=== PATIENT | male | born 1940 | race Caucasian/White ===

== ENCOUNTER → 2016-12-02 | Outpatient (CLI) | payer MEDICARE ==
[~2016-12-02] MED LIST: ALBU6.7H INH; CARD240C6 PO; CARD4TAB2 PO; CLIN150 OR; COUM5TAB PO; COZA50TA PO; DIGO.125 PO; FLUTI220I INH; FLUTI44I INH; GLUC2.5T2 PO; LANTUSP SQ; LASI20TA PO; METATAB; MOME17I; MONT10TA2 PO; POTA-243 PO; PROP1TAB PO; ROBA750T3 PO; ROSU5 PO; TAB-TAB PO; VITA500T10 PO; WARF2.5 PO
[2016-12-02 10:25] LABS: AUTOMATED NEUTROPHIL # 3.4 TH/MM3 (1.8-7.7); BASOPHIL % 0.5 % (0.0-2.0); EOSINOPHIL # 0.2 TH/MM3 (0-0.4); EOSINOPHIL % 3.1 % (0.0-4.0); HEMATOCRIT 32.5 % (39.0-51.0); HEMO FLAGS DIFF FINAL; LYMPH % 41.6 % (9.0-44.0); MEAN CELL VOLUME 89.7 FL (80.0-100.0); MEAN CORPUSCULAR HEMOGLOBIN 30.3 PG (27.0-34.0); MEAN CORPUSCULAR HGB CONC 33.7 % (32.0-36.0); MONO % 8.2 % (0.0-8.0); NEUT % 46.6 % (16.0-70.0); PLATELET COUNT 180 TH/MM3 (150-450); RED BLOOD COUNT 3.62 MIL/MM3 (4.50-5.90); RED CELL DISTRIBUTION WIDTH 15.4 % (11.6-17.2); WHITE BLOOD COUNT 7.3 TH/MM3 (4.0-11.0)
[2016-12-02 10:39] LABS: ANION GAP 5 MEQ/L (5-15); AST (GOT) 10 U/L (15-37); BICARBONATE 27.4 MEQ/L (21.0-32.0); CHLORIDE 107 MEQ/L (98-107); GLUCOSE,FASTING 124 MG/DL (74-99); POTASSIUM 4.5 MEQ/L (3.5-5.1); SODIUM (NA) 139 MEQ/L (136-145)
[2016-12-02 11:12] LABS: ALKALINE PHOSPHATASE 52 U/L (45-117); ALT (GPT) 18 U/L (12-78); BLOOD UREA NITROGEN 25 MG/DL (7-18); GLOMERULAR FILTRATION RATE 47 ML/MIN (>89); HDL CHOLESTEROL 30.7 MG/DL (40.0-60.0); LDL CHOLESTEROL 101 MG/DL (0-99); TOTAL BILIRUBIN ADULT 0.4 MG/DL (0.2-1.0)
[2016-12-02 16:45] LABS: HEMOGLOBIN A1a 1.2 %; HEMOGLOBIN Ao 82.9 %; HEMOGLOBIN LA1C 2.1 %; HEMOGLOBIN P3 4.3 %
== END ==
LOC: CLAB 09:54
PROVIDERS: ATTEND Family Medicine
DX: I10 Essential (primary) hypertension (principal); J44.0 Chronic obstructive pulmonary disease with (acute) lower respiratory infection; I50.30 Unspecified diastolic (congestive) heart failure; E03.8 Other specified hypothyroidism; R53.83 Other fatigue; E55.9 Vitamin D deficiency, unspecified; E10.9 Type 1 diabetes mellitus without complications
CPT/HCPCS: 36415; 80053; 80061; 82607; 83036; 84439; 84443; 84481; 85025

== ENCOUNTER → 2018-01-21 | Outpatient (CLI) | payer MEDICARE ==
[2018-01-21 11:30] LABS: AUTOMATED NEUTROPHIL # 2.8 TH/MM3 (1.8-7.7); BASOPHIL % 0.5 % (0.0-2.0); EOSINOPHIL # 0.2 TH/MM3 (0-0.4); EOSINOPHIL % 3.3 % (0.0-4.0); HEMATOCRIT 32.7 % (39.0-51.0); HEMOGLOBIN 11.3 GM/DL (13.0-17.0); LYMPH % 41.2 % (9.0-44.0); LYMPHOCYTE # 2.6 TH/MM3 (1.0-4.8); MEAN CELL VOLUME 89.3 FL (80.0-100.0); MEAN CORPUSCULAR HEMOGLOBIN 30.8 PG (27.0-34.0); MEAN CORPUSCULAR HGB CONC 34.4 % (32.0-36.0); MEAN PLATELET VOLUME 7.6 FL (7.0-11.0); MONO % 10.6 % (0.0-8.0); MONOCYTE # 0.7 TH/MM3 (0-0.9); NEUT % 44.4 % (16.0-70.0); PLATELET COUNT 203 TH/MM3 (150-450); RED BLOOD COUNT 3.66 MIL/MM3 (4.50-5.90); RED CELL DISTRIBUTION WIDTH 15.2 % (11.6-17.2); WHITE BLOOD COUNT 6.2 TH/MM3 (4.0-11.0)
[2018-01-21 11:49] LABS: ALBUMIN 3.2 GM/DL (3.4-5.0); ALT (GPT) 18 U/L (12-78); AST (GOT) 18 U/L (15-37); BICARBONATE 30.3 MEQ/L (21.0-32.0); BLOOD UREA NITROGEN 15 MG/DL (7-18); CALCIUM 8.8 MG/DL (8.5-10.1); CHLORIDE 106 MEQ/L (98-107); CHOLESTEROL 100 MG/DL (120-200); CREATININE 1.22 MG/DL (0.60-1.30); GLOMERULAR FILTRATION RATE 58 ML/MIN (>89); GLUCOSE,FASTING 118 MG/DL (74-99); SODIUM (NA) 141 MEQ/L (136-145); TRIGLYCERIDES 99 MG/DL (42-150)
[2018-01-21 11:51] LABS: ALKALINE PHOSPHATASE 57 U/L (45-117); CHOLESTEROL/ HDL RATIO 3.16 RATIO; HDL CHOLESTEROL 31.6 MG/DL (40.0-60.0); LDL CHOLESTEROL 49 MG/DL (0-99); TOTAL BILIRUBIN ADULT 0.4 MG/DL (0.2-1.0); TOTAL PROTEIN 7.7 GM/DL (6.4-8.2)
[2018-01-21 15:44] LABS: HEMOGLOBIN A1C 6.7 % (4.3-6.0)
== END ==
LOC: CLAB 10:52
DX: E11.65 Type 2 diabetes mellitus with hyperglycemia (principal)
CPT/HCPCS: 36415; 80053; 80061; 82043; 83036; 85025

== ENCOUNTER → 2018-02-27 | Outpatient (CLI) | payer MEDICARE ==
[~2018-02-27] MED LIST changes: +ACET-822 PO; +ATOR40TA16 PO; +CHLO1TAB34 PO; +DONE10TA7 PO; +DOXA1TAB34 PO; +FINA5TAB2 PO; +FURO20TA PO; +GABA300C5 PO; +INSU0.2I SQ; +JANT2.5T PO; +JANT5TAB PO; +LISI2.5T3 PO; +METF500T PO; +MOME17I EACH NARE; +MONT10TA4 PO; +MULT-65 PO; +PANT40TA3 PO; +POTA10TA2 PO; +SYMB160A INH; +VITA100018 PO
[2018-02-27 09:13] LABS: HEMATOCRIT 33.2 % (39.0-51.0); MEAN CELL VOLUME 90.7 FL (80.0-100.0); MEAN CORPUSCULAR HEMOGLOBIN 30.2 PG (27.0-34.0); MEAN CORPUSCULAR HGB CONC 33.3 % (32.0-36.0); PLATELET COUNT 233 TH/MM3 (150-450); RED BLOOD COUNT 3.66 MIL/MM3 (4.50-5.90); RED CELL DISTRIBUTION WIDTH 15.1 % (11.6-17.2); WHITE BLOOD COUNT 7.2 TH/MM3 (4.0-11.0)
[2018-02-27 09:13] LABS: BILIRUBIN, URINE NEG (NEG); BLOOD, URINE SMALL (NEG); GLUCOSE,URINE NEG (NEG); KETONE, URINE NEG (NEG); NITRITE,URINE NEG (NEG); URINE COLOR YELLOW (YELLW/STRAW); URINE LEUKOCYTE ESTERASE NEG (NEG)
[2018-02-27 09:16] LABS: INTERNATIONAL NORMALIZED RATIO 1.5 RATIO; PROTHROMBIN TIME - PATIENT 14.8 SEC (9.8-11.6)
[2018-02-27 09:33] LABS: BICARBONATE 26.8 MEQ/L (21.0-32.0); BLOOD UREA NITROGEN 28 MG/DL (7-18); CALCIUM 9.4 MG/DL (8.5-10.1); CHLORIDE 106 MEQ/L (98-107); CREATININE 1.52 MG/DL (0.60-1.30); GLOMERULAR FILTRATION RATE 45 ML/MIN (>89); GLUCOSE,FASTING 144 MG/DL (74-99); SODIUM (NA) 140 MEQ/L (136-145)
[2018-02-27 16:14] LABS: HEMOGLOBIN A1C 6.9 % (4.3-6.0)
== END ==
LOC: CPRE 07:57
PROVIDERS: ATTEND Orthopaedic Surgery
DX: Z01.812 Encounter for preprocedural laboratory examination (principal); M79.609 Pain in unspecified limb; M17.12 Unilateral primary osteoarthritis, left knee; M25.462 Effusion, left knee; M21.162 Varus deformity, not elsewhere classified, left knee; E11.9 Type 2 diabetes mellitus without complications
CPT/HCPCS: 36415; 80048; 81001; 83036; 85027; 85610; 85730

== ENCOUNTER 2018-03-10 07:22 | Inpatient (IN) | payer MEDICARE ==
[~2018-03-10] VITALS: Ht 167.6 cm; Wt 90.6 kg
[~2018-03-10 07:22] MED LIST changes: -ALBU6.7H INH; -CARD240C6 PO; -CARD4TAB2 PO; -CLIN150 OR; -COUM5TAB PO; -COZA50TA PO; -DIGO.125 PO; -FLUTI220I INH; -FLUTI44I INH; -GLUC2.5T2 PO; -LANTUSP SQ; -LASI20TA PO; -METATAB; -MOME17I; -MONT10TA2 PO; -POTA-243 PO; -PROP1TAB PO; -ROBA750T3 PO; -ROSU5 PO; -TAB-TAB PO; -VITA500T10 PO; -WARF2.5 PO
[2018-03-10] MEDS ORDERED: INSULIN HUMAN REGULAR 1,000 UNITS/10 ML VIAL SQ PRN (08:15)
[2018-03-10] MEDS ORDERED: POVIDONE IODINE 5% (ANTISEPSIS KIT) 4 APPLICATIONS EACH NARE PRN (08:15)
[2018-03-10] MEDS ORDERED: SODIUM CHLORID 0.9% 500 ML IV PRN (08:15)
[2018-03-10] MEDS ORDERED: METOPROLOL TARTRATE 25 MG TAB PO PRN (08:15)
[2018-03-10] MEDS ORDERED: LACTATED RINGER'S 1000 ML IV PRN (08:15)
[2018-03-10] MEDS ORDERED: TRANEXAMIC ACID INJ 906 MG in SODIUM CHLORIDE 0.9% INJ 100 ML IV SCH ×4 (08:15)
[2018-03-10] MEDS ORDERED: CHLORHEXIDINE GLUCONATE 4% SOLN 120 ML BTL TOPICAL SCH (08:15)
[2018-03-10] MEDS ORDERED: EXPAREL PERI-ARTICULAR INJECTION (TOTAL VOL. 100 ML) P-ARTICULR SCH ×2 (08:15)
[2018-03-10 08:22] VITALS: PULSE 60
[2018-03-10 08:38] LABS: INTERNATIONAL NORMALIZED RATIO 1.1 RATIO; PROTHROMBIN TIME - PATIENT 11.4 SEC (9.8-11.6)
[2018-03-10] MEDS ORDERED: CLINDAMYCIN PHOS 900 MG/6 ML VIAL ONE (09:12)
[2018-03-10] MEDS ORDERED: GENTAMICIN SULFATE 80 MG/2 ML VIAL ONE (09:12)
[2018-03-10] MEDS ORDERED: BUPIVACAINE LIPOSOME PF 1.3% 20 ML VIAL ONE ×2 (09:18→09:45)
[2018-03-10] MEDS ORDERED: MIDAZOLAM HCL 2 MG/2 ML VIAL ONE (09:18)
[2018-03-10] MEDS ORDERED: ceFAZolin INJ 1,000 MG VIAL ONE (09:30)
[2018-03-10] MEDS ORDERED: MIDAZOLAM HCL 2 MG/2 ML VIAL OTHER ONE (09:45)
[2018-03-10] MEDS ORDERED: ACETAMINOPHEN 1000 MG/100 ML 100 ML IV ONE (09:56)
[2018-03-10] MEDS ORDERED: FAMOTIDINE 20 MG/2 ML VIAL ONE (09:56)
[2018-03-10] MEDS ORDERED: ePHEDrine/NS 25 MG/5 ML SYRINGE IV ONE (12:00)
[2018-03-10] MEDS ORDERED: ROCURONIUM INJ 50 MG/5 ML SYRINGE IV PUSH ONE (12:00)
[2018-03-10] MEDS ORDERED: LACTATED RINGER'S 1000 ML INJ 1,000 ML IV ONE (12:00)
[2018-03-10] MEDS ORDERED: NEOSTIGMINE 5 MG/5 ML SYRINGE IV PUSH ONE (12:00)
[2018-03-10] MEDS ORDERED: PROPOFOL 200 MG/20 ML AMP IV ONE (12:00)
[2018-03-10] MEDS ORDERED: ESMOLOL HCL 100 MG/10 ML VIAL IV ONE (12:00)
[2018-03-10] MEDS ORDERED: LIDOCAINE HCL 1% PF 5 ML AMPULE OTHER ONE (12:00)
[2018-03-10] MEDS ORDERED: GLYCOPYRROLATE 1 MG/5 ML SYRINGE IV PUSH ONE (12:00)
[2018-03-10] MEDS ORDERED: ACETAMINOPHEN/HYDROcodone 325 MG/7.5 MG TAB PO PRN (13:00)
[2018-03-10] MEDS ORDERED: ONDANSETRON HCL 4 MG/2 ML VIAL IVP PRN (13:00)
[2018-03-10] MEDS ORDERED: CHLORPHENIRAMINE 4 MG PO PRN (13:00)
[2018-03-10] MEDS ORDERED: ZOLPIDEM TARTRATE 5 MG TAB PO PRN (13:00)
[2018-03-10] MEDS ORDERED: TRANEXAMIC ACID INJ 0 MG in SODIUM CHLORIDE 0.9% INJ 100 ML IV SCH (13:00)
[2018-03-10] MEDS ORDERED: MAGNESIUM HYDROXIDE SUSP 30 ML CUP PO PRN (13:00)
--- NOTE | 2018-03-10 13:06 | PD.OP ---
Operative Report Date of Surgery: Mar 10, 2018 Preoperative Diagnosis: (1) Primary osteoarthritis of left knee Postoperative Diagnosis: (1) Primary osteoarthritis of left knee Procedure: Left total knee arthroplasty using [place] Triathlon prosthesis (uncemented) Anesthesia: General endotracheal with supplemental adductor canal block regional and local with Exparel Surgeon: Delbert Darby MD Net Washer(s): Joe Dillon MD Operation and Findings: Indications and Findings: This 77-year-old man has had a 15 year history of progressively worsening left knee pain due to arthritis. He has loss of ambulation tolerance to 50 feet at this point. He has difficulty with stairs as well as standing from a seated position. He has had swelling in the knee and stiffness. He has not responded to conservative measures including analgesics, exercise, Orthovisc injections, ambulatory aids, bracing and weight loss attempts. He cannot take anti-inflammatory agents because of anticoagulants. Physical findings showed significant genu valgum with crepitation on motion, medial laxity, palpable osteophytes and tenderness on motion. X-ray showed severe osteoarthritis in the knee with loss of articular cartilage to bone on bone in the medial compartment, osteophytes and eburnation. Operative findings: The left knee had severe arthritis was tricompartmental in nature. The medial compartment was [id number] with erosion of the medial tibial plateau. There are large osteophytes apartments. There is degeneration in all compartments. The prosthesis used was a [place] Triathlon prosthesis. The femur was a size 5, cruciate retaining, uncemented. The tibial baseplate was a size 5 Tritanium with a 9 mm X3 polyethylene cruciate retaining spacer. The patella was a size 35 mm asymmetric Tritanium backed. The patient was brought to the clean-air operating suite. A general endotracheal anesthetic was administered as well as a regional anesthetic by adductor canal block. The position was supine with a small bolster under the hip on the operative side. A pneumatic tourniquet was applied to the upper thigh. The lower extremity was then prepped with alcohol, Hibiclens and ChloraPrep and draped in the usual manner with the knee draped free. An appropriate timeout procedure was carried out. An incision was made from about 3 fingerbreadths above the superior medial pole of patella down the tibial tubercle on the medial side. The incision was deepened through the subcutaneous tissue to the retinacular structures which were exposed medially and laterally. A medial retinacular incision was then made from the superior middle pole of patella down the tibial tubercle and up into the quadriceps tendon splitting it longitudinally and the medial one third. The patella was reflected. The infrapatellar fat pad was debulked. The anterior cruciate ligament was excised. Medial and lateral meniscectomies were initiated. Fenestrations were made in the distal femur and proximal tibia for intramedullary referencing guides. The distal femoral cutting guide and jig were then assembled for a 5, 8 mm cut. When this was fit position and placed cutting block was stabilized with pins. The jig was removed. The distal femoral cut was then completed with the oscillating saw. The sizing guide was then positioned in place along Whites[place] line and the epicondylar axis and stabilized with pins. The femoral size was then determined as noted above. The 4-in-1 cutting block was then positioned in place. Anterior and posterior cuts were made followed by posterior and anterior chamfer cuts taking care to prevent injury to ligamentous structures. Osteophytes were then trimmed from the distal femur. A bone plug was then placed into the fenestration of the distal femur. The proximal tibia was then exposed. The medial and lateral meniscectomies were completed. The proximal tibial cutting guide was then positioned in place and stabilized with a pin for rotation. The depth of cut was then verified with a stylus off the lateral side. The cutting block was stabilized with pins. The jig was removed. The depth of cut was then verified and adjusted appropriately with the use of the spacer block. The proximal tibial cut was then made with the oscillating saw taking care to prevent injury to neurovascular and ligamentous structures. Proximal tibial bone was removed. Local anesthetic was administered with Exparel in the posterior capsule. The tibial baseplate trial was then positioned in place. After verifying the appropriate size, the base plate trial was positioned in place along with its spacer. The femoral component was then impacted into place. The alignment was checked. The tibial baseplate was then pinned in place on the tibia. Attention was directed to the patella. The patella drill guide was positioned in place for the appropriate sized patella. Patellar drilling was then carried out. The trial patella was positioned in place. The knee was taken through a range of motion which was easily 0 extension to 150 by gravity. The patella trial was removed. The femoral drill holes were made. The femoral trials were removed. The tibial spacer was removed. A bone plug was placed into the proximal tibia. The tibial punch was impacted through the proximal tibial punch guide. This was all removed followed by placement of the tibial drill guide. The tibial drill holes were then made. The guide was removed. The cut ends of bone were then cleaned with pulse lavage. The tibial baseplate was then impacted into place and seated appropriately. The spacer was inserted. The the femoral component was then impacted into place and seated appropriately. The patella component was then seated with the patellar vice and tightened appropriately. The knee was taken through a range of motion which was comparable to the previous range of motion with excellent stability in flexion and extension and appropriate patellofemoral tracking. The remainder of the Exparel was then injected throughout the knee as a local anesthetic. Drains were brought out the superior lateral aspect of the suprapatellar pouch. Wound closure then commenced using 0 Vicryl interrupted [id number] sutures for the capsular and fascial structures, 2-0 Vicryl interrupted simple sutures with buried knots for the subcutaneous tissues and 4- 0 Monocryl, tenuous subcuticular closure for the skin. The wound was then dressed with Dermabond Prineo followed by Optifoam silver impregnated dressing. Sterile soft roll with a cooling pad and Shaun bandage from the base of the toes to mid thigh were then applied. Patient was then transferred from the operating room to the recovery room in satisfactory condition having tolerated procedure well. Counts are correct. Specimens: None. Estimated blood loss: 100 mL Forest Darby MD ([place]) Mar 10, 2018 13:06
--- NOTE | 2018-03-10 13:09 | HHI.FF ---
Face to Face Verification Diagnosis: (1) Status post total left knee replacement Physical Therapy Gait training Knee: Total knee, Protocol: Left, Gait training, Full weight bearing Left LE Weight Bearing: WB as tolerated Left LE Range of Motion: Active ROM (Active, active assisted, passive range of motion. Range of motion goal 0 extension to 140 of flexion. Range of motion achieved in the operating room was 0 extension to 150 of flexion.) Nursing Nursing: Dressing changes Dressing Changes: Daily dressing change, Coverderm/Primapore Additional Instructions Do not remove Dermabond Prineo I have seen patient Cheikh Wills on 03/10/18. My clinical findings support the need for the requested home health care services because: Ltd mobility - disease progression Limited ability to care for self High risk of falls I certify that my clinical findings support that this patient is homebound because: Post-op weakness Unsteady gait/balance Unsafe to leave home unassisted Forest Darby MD ([place]) Mar 10, 2018 13:09
[2018-03-10] MEDS ORDERED: Post-op Orders (for Pharmacy) XX ONE (13:25)
[2018-03-10] MEDS ORDERED: *HYDROmorphone PF 0.5 MG/0.5 ML PERIprocedure ONLY ONE (13:38)
[2018-03-10] MEDS: LACTATED RINGER'S 1000 ML INJ 1,000 ML IV SCH ×2 (14:10→18:20)
[2018-03-10] MEDS ORDERED: HYDROmorphone HCL PF 0.5 MG/0.5 ML SYRINGE IV PRN (14:15)
[2018-03-10] MEDS: KETOROLAC TROMETHAMINE 30 MG/ML (IVP) VIAL IVP SCH ×2 (14:37→21:03)
--- NOTE | 2018-03-10 15:39 | PD.CONS ---
[facility] By Dr. Darby Reason for Consult Medical management Primary Care Physician Jose Reynoso MD Diagnoses: (1) Atrial fibrillation (2) Diabetes (3) Hypertension (4) Primary osteoarthritis of left knee (5) Status post total left knee replacement History of Present Illness 77-year-old male with a medical history significant for osteoarthritis, diabetes , hypertension, CHF, A. fib, COPD, early dementia, who presented to the hospital for elective left knee arthroplasty. Patient reports he has been struggling with osteoarthritis involving his knee. He failed conservative management outpatient and was brought into the hospital for knee replacement. Medical history extensively reviewed. He is seen postoperatively. He reports that he is comfortable currently. Review of Systems Constitutional: DENIES: Weight gain, Weight loss Musculoskeletal: COMPLAINS OF: Joint pain Except as stated in HPI: all other systems reviewed are Neg Past Family Social History Allergies: Coded Allergies: adhesive tape (Verified Allergy, Severe, RASH, 03/02/18) amoxicillin (Unverified Allergy, Severe, RASH shortness of breath, 03/10/18 ) bacitracin (Verified Allergy, Severe, RASH, 03/02/18) chlorhexidine (Verified Allergy, Severe, rash, 03/10/18) morphine (Unverified Allergy, Severe, N/V, 07/01/17) neomycin (Verified Allergy, Severe, RASH, 03/02/18) polymyxin B (Verified Allergy, Severe, RASH, 03/02/18) Penicillins (Verified Allergy, Unknown, RASH shortness of breath, 03/10/18) Past Medical History osteoarthritis, diabetes, hypertension, CHF, A. fib, COPD, early dementia BPH Past Surgical History Hernia repair 2 Right knee replacement Pacemaker placement Reported Medications Reported Meds & Active Scripts Active Reported Nasonex Nasal [place] (Mometasone Furoate) 50 Mcg/Act Naspr 1 [place] EACH NARE DAILY Tylenol Extra Strength (Acetaminophen) 500 Mg Tablet 1 Tab PO DIRECTED Symbicort Inh (Budesonide/Formoterol Fumarate) 160-4.5 Mcg/Act Aero 2 Puff INH Q12HR Aller-Chlor (Chlorpheniramine Maleate) 4 Mg Tab 4 Mg PO HS PRN Multi-Vitamin Daily (Multiple Vitamin) 1 Tab Tab 1 Tab PO DAILY Vitamin D3 (Cholecalciferol) 1,000 Unit Tab 1,000 Units PO DAILY Atorvastatin (Atorvastatin Calcium) 40 Mg Tab 40 Mg PO DAILY Finasteride 5 Mg Tab 5 Mg PO HS Do not crush. Donepezil 10 Mg Tab 10 Mg PO HS Pantoprazole (Pantoprazole Sodium) 40 Mg Tab 40 Mg PO HS Jantoven (Warfarin) 2.5 Mg Tab 2.5 Mg PO WEIR,TU,WE,FR,SA Jantoven (Warfarin) 5 Mg Tab 5 Mg PO MO,TH Potassium Chloride ER (Potassium Chloride) 10 Meq Tab 10 Meq PO HS Doxazosin (Doxazosin Mesylate) 4 Mg Tab 4 Mg PO HS Furosemide 20 Mg Tab 20 Mg PO DAILY Metformin (Metformin HCl) 500 Mg Tab 500 Mg PO DAILYAC With a meal Gabapentin 300 Mg Cap 1,200 Mg PO HS Gabapentin 300 Mg Cap 900 Mg PO DAILY@0600 Montelukast (Montelukast Sodium) 10 Mg Tab 10 Mg PO DAILY Soliqua 100/33 100-33 Unt-Mcg/ml (Insulin Glargine-Lixisenatide) 100 Unit-33 Mcg /Ml (3 Ml) Inj 35 SQ DAILYAC Family History Reviewed and found to be noncontributory. Social History Does not use tobacco, alcohol or illicit drugs. Physical Exam Vital Signs Vital Signs Date Time Temp Pulse Resp B/P (MAP) Pulse Ox O2 Delivery O2 Flow Rate FiO2 03/10/18 15:00 84 12 141/92 (108) 98 03/10/18 14:45 82 12 143/67 (92) 95 03/10/18 14:30 100 12 177/76 (109) 95 03/10/18 14:15 103 12 169/79 (109) 99 03/10/18 14:00 112 8 144/77 (99) 100 03/10/18 13:45 114 20 132/78 (96) 99 03/10/18 13:30 98 21 138/81 (100) 98 03/10/18 13:27 97.6 123 16 146/73 (97) 96 Nasal Cannula 2 03/10/18 08:53 100 Nasal Cannula 2 03/10/18 08:23 97.9 63 18 121/80 (94) 99 03/10/18 08:22 60 Physical Exam GENERAL: This is a well-nourished, well-developed patient, in no apparent distress. SKIN: No rashes, ecchymoses or lesions. Cool and dry. HEAD: Atraumatic. Normocephalic. No temporal or scalp tenderness. EYES: Pupils equal round and reactive. Extraocular motions intact. No scleral icterus. No injection or drainage. ENT: Nose without bleeding, purulent drainage or septal hematoma. Throat without erythema, tonsillar hypertrophy or exudate. Uvula midline. Airway patent. NECK: Trachea midline. No JVD or lymphadenopathy. Supple, nontender, no meningeal signs. CARDIOVASCULAR: Regular rate and rhythm without murmurs, gallops, or rubs. RESPIRATORY: Clear to auscultation. Breath sounds equal bilaterally. No wheezes , rales, or rhonchi. GASTROINTESTINAL: Abdomen soft, non-tender, nondistended. No hepato-splenomegaly , or palpable masses. No guarding. MUSCULOSKELETAL: Left knee and postoperative splint. Neurovascularly intact distally at the toes. There is a drain in place. NEUROLOGICAL: Awake and alert. Cranial nerves II through XII intact. Motor and sensory grossly within normal limits. Five out of 5 muscle strength in all muscle groups. Normal speech. Laboratory Laboratory Tests Test 03/10/18 08:15 Prothrombin Time 11.4 Prothromb Time International Ratio 1.1 Assessment and Plan Problem List: (1) Primary osteoarthritis of left knee ICD Code: M17.12 - Unilateral primary osteoarthritis, left knee (2) Status post total left knee replacement ICD Code: Z96.652 - Presence of left artificial knee joint (3) Diabetes ICD Code: E11.9 - Type 2 diabetes mellitus without complications (4) Hypertension ICD Code: I10 - Essential (primary) hypertension (5) Atrial fibrillation ICD Code: I48.91 - Unspecified atrial fibrillation Assessment and Plan 77-year-old male admitted for left knee arthroplasty: Left knee arthroplasty: - Routine postoperative care per orthopedics - Pain control - Early PT Diabetes: Patient reports this has been fairly controlled. He is on Soliqua which is a combination of Insulin Glargine and Lixisenatide. Not on formulary at the hospital. - Will start Levemir 10 units nightly and sliding scale insulin with Accu-Cheks. - Monitor blood glucose and adjust as needed. He can be discharged on his home regimen when ready. Atrial fibrillation/history of pacemaker placement: -Coumadin to be restarted tomorrow per orthopedics. INR is 1.2. May need bridging with Lovenox. We will continue home medications for his chronic medical conditions. Odell Shell MD Mar 10, 2018 15:39
[2018-03-10] MEDS ORDERED: DEXTROSE 50% IN WATER 50 ML VIAL(D50) IV PUSH PRN (15:45)
[2018-03-10] MEDS ORDERED: GLUCAGON 1 MG/ML VIAL OTHER PRN (15:45)
--- NOTE | 2018-03-10 15:57 | RADRPT ---
EXAM DATE/TIME: 03/10/2018 13:49 [facility] COMPARISON: No previous studies available for comparison. INDICATIONS : Post op left knee surgery. MEDICAL HISTORY : Unobtainable. SURGICAL HISTORY : Unobtainable. ENCOUNTER: Initial ACUITY: 1 day PAIN SCORE: Non-responsive. LOCATION: Left knee. FINDINGS: Postsurgical features of left knee arthroplasty. Arthroplasty components are in anatomic alignment. N o significant acute bony fracture. Immediate postsurgical soft tissue features. CONCLUSION: 1. Status post left knee arthroplasty in anatomic alignment without significant acute bony fracture. Kobe Rios MD on March 10, 2018 at 15:54 Board Certified Radiologist. This report was verified electronically.
[2018-03-10 16:00] VITALS: BP 120/70; PULSE 94; RESP 18; TEMP 98.4; O2SAT 94
[2018-03-10] MEDS: INSULIN ASPART SUPPLEMENTAL SCALE SQ SCH ×2 (17:00→21:00)
[2018-03-10] MEDS: ACETAMINOPHEN/HYDROcodone 325 MG/7.5 MG TAB PO PRN (18:19)
[2018-03-10 19:54] VITALS: O2SAT 94
[2018-03-10 20:00] VITALS: BP 111/55; PULSE 64; RESP 20; TEMP 98.8; O2SAT 94
[2018-03-10] MEDS ORDERED: ASPIRIN EC 81 MG TABEC PO SCH (21:00)
[2018-03-10] MEDS ORDERED: INSULIN DETEMIR 100 UNITS/ML VIAL SQ SCH (21:00)
[2018-03-10] MEDS: GABAPENTIN 300 MG CAP PO SCH (21:02)
[2018-03-10] MEDS: PANTOPRAZOLE SOD 40 MG DELAYED RELEASE TAB PO SCH (21:02)
[2018-03-10] MEDS: DOXAZOSIN MESYLATE 4 MG TAB PO SCH (21:02)
[2018-03-10] MEDS: POTASSIUM CHLORIDE 10 MEQ CONTROLLED RELEASE TAB PO SCH (21:02)
[2018-03-10] MEDS: DONEPEZIL HCL 5 MG TAB PO SCH (21:02)
[2018-03-10] MEDS: FINASTERIDE 5 MG TAB PO SCH (21:02)
[2018-03-10] MEDS ORDERED: LORATADINE 10 MG TAB PO PRN (21:15)
[2018-03-10] MEDS: BUDESONIDE-FORMOTEROL 160/4.5 MCG INHALER INH SCH (22:38)
[2018-03-11] VITALS: BP 134/63; PULSE 59; RESP 20; TEMP 97.1; O2SAT 94
[2018-03-11] MEDS: KETOROLAC TROMETHAMINE 30 MG/ML (IVP) VIAL IVP SCH ×4 (03:04→21:10)
[2018-03-11 04:00] VITALS: BP 121/58; PULSE 63; RESP 20; TEMP 97.4; O2SAT 100
[2018-03-11] MEDS: GABAPENTIN 300 MG CAP PO SCH ×2 (05:28→21:16)
--- NOTE | 2018-03-11 07:03 | PD.ORT.PN ---
Subjective Post Op Day #: 1 Subjective Remarks He is doing well. He has minimal complaints related to his knee at this time. There is not a great deal of pain. He is tolerating the analgesic. Range of Motion -15 extension to 70 of flexion with PT in PACU Distance Walked 2 feet with PT in PACU. Objective Vitals Vital Signs Date Time Temp Pulse Resp B/P (MAP) Pulse Ox O2 Delivery O2 Flow Rate FiO2 03/11/18 04:00 97.4 63 20 121/58 (79) 100 03/11/18 00:00 97.1 59 20 134/63 (86) 94 03/10/18 20:00 98.8 64 20 111/55 (73) 94 03/10/18 19:54 94 21 03/10/18 16:00 98.4 94 18 120/70 (87) 94 03/10/18 16:00 97.6 71 16 112/57 (75) 97 Nasal Cannula 2 03/10/18 15:00 84 12 141/92 (108) 98 03/10/18 14:45 82 12 143/67 (92) 95 03/10/18 14:30 100 12 177/76 (109) 95 03/10/18 14:15 103 12 169/79 (109) 99 03/10/18 14:00 112 8 144/77 (99) 100 03/10/18 13:45 114 20 132/78 (96) 99 03/10/18 13:30 98 21 138/81 (100) 98 03/10/18 13:27 97.6 123 16 146/73 (97) 96 Nasal Cannula 2 03/10/18 08:53 100 Nasal Cannula 2 03/10/18 08:23 97.9 63 18 121/80 (94) 99 03/10/18 08:22 60 I/O 03/10/18 03/10/18 03/10/18 03/11/18 03/11/18 03/11/18 07:00 15:00 23:00 07:00 15:00 23:00 Intake Total 1500 ml 1340 ml Output Total 170 ml 120 ml 935 ml Balance 1330 ml -120 ml 405 ml Intake Oral 480 ml IV Total 1500 ml 860 ml Output Urine Total 900 ml Drainage Total 70 ml 120 ml 35 ml Estimated Blood Loss 100 ml Other Results Laboratory Tests Test 03/10/18 08:15 Prothromb Time International Ratio 1.1 RATIO Prothrombin Time 11.4 SEC (9.8-11.6) Imaging Last 24 hours Impressions Knee X-Ray 03/10/18 1248 Signed Impressions: Service Date/Time: Saturday, March 10, 2018 13:49 - CONCLUSION: 1. Status post left knee arthroplasty in anatomic alignment without significant acute bony fracture. Kobe Rios MD Objective Remarks He is resting comfortably, supine in bed, in the [facility]. The neurovascular status is intact. The dressing is dry and intact. Assessment & Plan Ortho Post Op Day #: 1 Problem List: (1) Primary osteoarthritis of left knee ICD Codes: M17.12 - Unilateral primary osteoarthritis, left knee Status: Resolved (2) Status post total left knee replacement ICD Codes: Z96.652 - Presence of left artificial knee joint Plan: Continue postop care and PT. Assessment and Plan Condition: Good. Orthopedically stable. DVT prophylaxis: TEDs, resumption of warfarin, sequentials. Discharge plans: Home with home health care. An appointment was scheduled through the office. Prescriptions: [place] 7.5/325 Forest Darby MD ([place]) Mar 11, 2018 07:03
[2018-03-11 07:04] LABS: HEMATOCRIT 26.9 % (39.0-51.0); HEMOGLOBIN 9.3 GM/DL (13.0-17.0)
--- NOTE | 2018-03-11 07:39 | HHI.DS ---
Discharge Summary Admission Date Mar 10, 2018 at 07:22 Discharge Date: Mar 13, 2018 Admitting Diagnosis Primary osteoarthritis, left knee. Diagnosis: (1) Primary osteoarthritis of left knee Diagnosis: Principal ICD Codes: M17.12 - Unilateral primary osteoarthritis, left knee Status: Resolved (2) Status post total left knee replacement Diagnosis: Principal ICD Codes: Z96.652 - Presence of left artificial knee joint Procedures Left total knee arthroplasty using [place] Triathlon prosthesis (noncemented) on 03/10/2018. Brief History This is a 77 year old male patient has had long-standing arthritis in his left knee which has been progressive in nature as detailed in the history and physical examination. He has not responded to conservative measures. Physical findings showed significant genu valgum with palpable osteophytes and medial laxity. X-ray showed severe osteoarthritis particularly in the medial compartment with loss of articular cartilage to bone on bone, osteophytes and eburnation. CBC/BMP: 03/11/18 0631 Significant Findings Laboratory Tests Test 03/10/18 08:15 03/11/18 06:31 Hemoglobin 9.3 GM/DL (13.0-17.0) Hematocrit 26.9 % (39.0-51.0) Imaging Last 72 hours Impressions Knee X-Ray 03/10/18 1248 Signed Impressions: Service Date/Time: Saturday, March 10, 2018 13:49 - CONCLUSION: 1. Status post left knee arthroplasty in anatomic alignment without significant acute bony fracture. Kobe Rios MD PE at Discharge He is resting comfortably, supine in bed, in the [facility]. The neurovascular status is intact. The dressing is dry and intact. Hospital Course The patient was admitted as noted above. The above noted operative procedure was carried out that day. Preoperatively prophylactic antibiotics were administered Ancef according to protocol. These were continued postoperatively. The patient also received tranexamic acid to help with hemostasis according to protocol. In the postanesthesia care unit a continuous passive motion device was initiated. Also initiated were mechanical methods of DVT prophylaxis in the form of SERA stockings and sequentials. Physical therapy was initiated on the day of surgery. On postoperative day #1 physical therapy continued. The use of the continuous passive motion device continued. DVT prophylaxis with resumption of his warfarin was initiated at this time. The patient continued physical therapy throughout the hospitalization. The distance walked and range of motion improved throughout the hospitalization. After his second physical therapy, the patient had some sensorium changes that required intervention. He had a CT scan of the brain which was normal. He did improve by postoperative day #2. On postoperative day 2, physical therapy continued. The patient was discharged on postoperative day 3 with the disposition being to home with home health care. An appointment for follow-up was made prior to admission. Pt Condition on Discharge: Good Discharge Disposition: Disch w/ Home Health Serv Discharge Instructions Diet Instructions: As Tolerated, No Restrictions Activities You Can Perform: Full Weight Bearing, Shower Only-No Bath Activities to Avoid: Lifting/Bending, Strenuous Activity, Bathing, Driving Follow up Referrals: Orthopedics with Forest Darby MD ([place]) New Medications: Hydrocodone/Acetaminophen (Hydrocodone-Acetamin 7.5-325) 7.5 Mg-325 Mg Tablet 1 TAB PO Q4H PRN for PAIN SCALE 1 TO 10, #30 TAB Continued Medications: Acetaminophen (Tylenol Extra Strength) 500 Mg Tablet 1 TAB PO DIRECTED for Pain Management Atorvastatin (Atorvastatin) 40 Mg Tab 40 MG PO DAILY for Cholesterol Management, #30 TAB 0 Refills Budesonide-Formoterol Inh (Symbicort Inh) 160-4.5 Mcg/Act Aero 2 PUFF INH Q12HR, #1 INHALER 0 Refills Chlorpheniramine (Aller-Chlor) 4 Mg Tab 4 MG PO HS PRN for Allergies, TAB 0 Refills Cholecalciferol (Vitamin D3) 1,000 Unit Tab 1000 UNITS PO DAILY for Nutritional Supplement, #1 BOTTLE 0 Refills Donepezil (Donepezil) 10 Mg Tab 10 MG PO HS for Dementia, #30 TAB 0 Refills Doxazosin (Doxazosin) 4 Mg Tab 4 MG PO HS, #30 TAB 0 Refills Finasteride (Finasteride) 5 Mg Tab 5 MG PO HS for Manage Prostate Problems, #30 TAB 0 Refills Do not crush. Furosemide (Furosemide) 20 Mg Tab 20 MG PO DAILY, #30 TAB 0 Refills Gabapentin (Gabapentin) 300 Mg Cap 900 MG PO DAILY@0600, #90 CAP 0 Refills Gabapentin (Gabapentin) 300 Mg Cap 1200 MG PO HS, #90 CAP 0 Refills Insulin Glargine-Lixisenatide (Soliqua 100/33 100-33 Unt-Mcg/ml) 100 Unit-33 Mcg /Ml (3 Ml) Inj 35 SQ DAILYAC for Blood Sugar Management Metformin (Metformin) 500 Mg Tab 500 MG PO DAILYAC for Blood Sugar Management, #30 TAB 0 Refills With a meal Mometasone Nasal [place] (Nasonex Nasal [place]) 50 Mcg/Act Naspr 1 SPRAY EACH NARE DAILY for Allergy Management, #1 BOTTLE 0 Refills Montelukast (Montelukast) 10 Mg Tab 10 MG PO DAILY, #30 TAB 0 Refills Multiple Vitamin (Multi-Vitamin Daily) 1 Tab Tab 1 TAB PO DAILY for Nutritional Supplement, TAB 0 Refills Pantoprazole (Pantoprazole) 40 Mg Tab 40 MG PO HS for Reflux, #30 TAB 0 Refills Potassium Chloride ER (Potassium Chloride ER) 10 Meq Tab 10 MEQ PO HS for Electrolyte Replacement, #30 TAB 0 Refills Warfarin (Jantoven) 5 Mg Tab 5 MG PO MO,TH for Blood Clot Prevention, #30 TAB 0 Refills Warfarin (Jantoven) 2.5 Mg Tab 2.5 MG PO WEIR,TU,WE,FR,SA for Blood Clot Prevention, #30 TAB 0 Refills Forest Darby MD ([place]) Mar 11, 2018 07:39
[2018-03-11] MEDS ORDERED: HYDR-3580 PO (07:40)
[2018-03-11 07:54] VITALS: BP 120/55; PULSE 62; RESP 18; TEMP 98.2; O2SAT 99
[2018-03-11] MEDS: INSULIN ASPART SUPPLEMENTAL SCALE SQ SCH ×3 (08:00→20:57)
[2018-03-11] MEDS: ACETAMINOPHEN/HYDROcodone 325 MG/7.5 MG TAB PO PRN ×2 (08:03→15:19)
[2018-03-11] MEDS: MULTIVITAMIN TAB PO SCH (09:16)
[2018-03-11] MEDS: CHOLECALCIFEROL (VIT D3) 1000 UNIT TAB PO SCH (09:16)
[2018-03-11] MEDS: FUROSEMIDE 20 MG TAB PO SCH (09:17)
[2018-03-11] MEDS: MONTELUKAST SODIUM 10 MG TAB PO SCH (09:17)
[2018-03-11] MEDS: BUDESONIDE-FORMOTEROL 160/4.5 MCG INHALER INH SCH ×2 (09:17→21:23)
[2018-03-11] MEDS: ATORVASTATIN 40 MG TAB PO SCH (09:17)
[2018-03-11] MEDS: metFORMIN HCL 500 MG TAB PO SCH (09:23)
[2018-03-11] MEDS: FLUTICASONE PROPIONATE 50 MCG/ACT 16 GM NASAL SPRAY EACH NARE SCH (09:32)
--- NOTE | 2018-03-11 10:16 | HHI.PR ---
Subjective Remarks Patient reports he is feeling okay. Pain is controlled. He wants to use it is on insulin. Objective Vitals Vital Signs Date Time Temp Pulse Resp B/P (MAP) Pulse Ox O2 Delivery O2 Flow Rate FiO2 03/11/18 07:54 98.2 62 18 120/55 (76) 99 03/11/18 04:00 97.4 63 20 121/58 (79) 100 03/11/18 00:00 97.1 59 20 134/63 (86) 94 03/10/18 20:00 98.8 64 20 111/55 (73) 94 03/10/18 19:54 94 21 03/10/18 16:00 98.4 94 18 120/70 (87) 94 03/10/18 16:00 97.6 71 16 112/57 (75) 97 Nasal Cannula 2 03/10/18 15:00 84 12 141/92 (108) 98 03/10/18 14:45 82 12 143/67 (92) 95 03/10/18 14:30 100 12 177/76 (109) 95 03/10/18 14:15 103 12 169/79 (109) 99 03/10/18 14:00 112 8 144/77 (99) 100 03/10/18 13:45 114 20 132/78 (96) 99 03/10/18 13:30 98 21 138/81 (100) 98 03/10/18 13:27 97.6 123 16 146/73 (97) 96 Nasal Cannula 2 I/O 03/10/18 03/10/18 03/10/18 03/11/18 03/11/18 03/11/18 07:00 15:00 23:00 07:00 15:00 23:00 Intake Total 1500 ml 1340 ml Output Total 170 ml 120 ml 935 ml Balance 1330 ml -120 ml 405 ml Intake Oral 480 ml IV Total 1500 ml 860 ml Output Urine Total 900 ml Drainage Total 70 ml 120 ml 35 ml Estimated Blood Loss 100 ml Result Diagram: 03/11/18 0631 Objective Remarks GENERAL: This is a well-nourished, well-developed patient, in no apparent distress. CARDIOVASCULAR: Normal rate and regular rhythm without murmurs, gallops, or rubs. RESPIRATORY: Good respiratory efforts. Breath sounds equal and clear to auscultation bilaterally. GASTROINTESTINAL: Abdomen soft, non-tender, non-distended. Normal active bowel sounds MUSCULOSKELETAL: Left knee postop. In immobilizer. Neurovascularly intact distally at the toes. NEURO: Alert & Oriented x4 to person, place, time, situation. Moves all ext x4 PSYCH: Appropriate mood and affect. A/P Problem List: (1) Primary osteoarthritis of left knee ICD Code: M17.12 - Unilateral primary osteoarthritis, left knee Status: Resolved (2) Status post total left knee replacement ICD Code: Z96.652 - Presence of left artificial knee joint (3) Diabetes ICD Code: E11.9 - Type 2 diabetes mellitus without complications (4) Hypertension ICD Code: I10 - Essential (primary) hypertension (5) Atrial fibrillation ICD Code: I48.91 - Unspecified atrial fibrillation Assessment and Plan 77-year-old male admitted for left knee arthroplasty: Left knee arthroplasty: - Routine postoperative care per orthopedics - Pain control - Early PT Diabetes: Patient reports this has been fairly controlled. He is on Soliqua which is a combination of Insulin Glargine and Lixisenatide. Not on formulary at the hospital. -Okay for patient to use his on medication. Discussed with RN. Atrial fibrillation/history of pacemaker placement: -Coumadin restarted per orthopedics. Consider bridging with Lovenox on discharge. Discharge Planning Hospital is cleared for discharge. Odell Shell MD Mar 11, 2018 10:16
[2018-03-11 11:32] VITALS: BP 126/57; PULSE 87; RESP 18; TEMP 98.2; O2SAT 96
[2018-03-11] MEDS: LACTATED RINGER'S 1000 ML INJ 1,000 ML IV SCH (13:48)
[2018-03-11] MEDS: WARFARIN SOD 2.5 MG TAB PO SCH (15:19)
--- NOTE | 2018-03-11 19:55 | HHI.PR ---
Addendum to Inpatient Note Addendum Reason: Additional Documentation Additional Information S: Residents paged about Anya at 1900 for AMS. Patient's and nurse provide the majority of the history. Patient is POD 1 from L knee arthroplasty. He has been working with physical therapy and walked the length of the solomon this afternoon, but shortly after began to have generalized shaking/chills as well as becoming confused. He began looking around the room asking where he was and he continues to be confused at time of evaluation. Nursing staff reports his O2 saturations were in the high 80's at that time and he was placed on 3L NC and his saturations have improved to the high 90's. reports he has "early Parkinson's disease." He also had some confusion/lethargy after having narcotics earlier this hospitalization per nursing staff. He did have a PO Nezperce 7.5mg at 15:19. O: VS WNL on 3L NC Gen: elderly male laying in bed comfortably under multiple blankets CV: distant heart sounds but did not hear any rhythm irregularities or murmurs Resp: CTAB with no wheezes abd: Soft, nontender EXT: warm and well perfused, no calf tenderness. distal pulses intact Neuro: Oriented only to person. Follows commands appropriately. Cranial nerves intact. Strength and sensation intact bilaterally except for his LLE which had decreased strength (leg that was operated on) A/P: 77 yo M with PMH of DM, HTN, CHF, A fib, osteoarthritis, BPH who is POD 1 from L knee arthroplasty. Anya called for AMS Differential includes stroke, TIA, delirium, opioid side effect, ACS -CT brain w/o contrast to rule out stroke -CBC -CMP -EKG -Troponin -Magnesium -BNP Primary team notified SDW Willie Braden MD R1 Mar 11, 2018 19:55
[2018-03-11 20:16] VITALS: BP 154/77; PULSE 85; RESP 18; TEMP 98.6; O2SAT 99
--- NOTE | 2018-03-11 20:43 | RADRPT ---
EXAM DATE/TIME: 03/11/2018 20:17 [facility] COMPARISON: CT BRAIN W/O CONTRAST, August 29, 2010, 14:38. INDICATIONS : Altered mental status. RADIATION DOSE: 36.25 CTDIvol (mGy) MEDICAL HISTORY : Cerebrovascular disease. Hypertension. Congestive heart failure. SURGICAL HISTORY : Pacemaker. ENCOUNTER: Initial ACUITY: 1 day PAIN SCALE: 0/10 LOCATION: cranial TECHNIQUE: Multiple contiguous axial images were obtained of the head. Using automated exposure control and adj ustment of the mA and/or kV according to patient size, radiation dose was kept as low as reasonably a chievable to obtain optimal diagnostic quality images. DICOM format image data is available electro nically for review and comparison. FINDINGS: CEREBRUM: The ventricles are normal for age. No evidence of midline shift, mass lesion, hemorrhage or acute in farction. No extra-axial fluid collections are seen. POSTERIOR FOSSA: The cerebellum and brainstem are intact. The 4th ventricle is midline. The cerebellopontine angle i s unremarkable. EXTRACRANIAL: The visualized portion of the orbits is intact. SKULL: The calvaria is intact. No evidence of skull fracture. CONCLUSION: No acute abnormality demonstrated. Adriel Brewer MD on March 11, 2018 at 20:40 Board Certified Radiologist. This report was verified electronically.
[2018-03-11] MEDS: POTASSIUM CHLORIDE 10 MEQ CONTROLLED RELEASE TAB PO SCH (21:00)
[2018-03-11] MEDS: DOXAZOSIN MESYLATE 4 MG TAB PO SCH (21:16)
[2018-03-11] MEDS: DONEPEZIL HCL 5 MG TAB PO SCH (21:16)
[2018-03-11] MEDS: DOCUSATE SODIUM 100 MG CAP PO SCH (21:16)
[2018-03-11] MEDS: FINASTERIDE 5 MG TAB PO SCH (21:17)
[2018-03-11] MEDS: PANTOPRAZOLE SOD 40 MG DELAYED RELEASE TAB PO SCH (21:17)
[2018-03-11 21:35] LABS: AUTOMATED NEUTROPHIL # 5.2 TH/MM3 (1.8-7.7); BASOPHIL % 0.5 % (0.0-2.0); EOSINOPHIL # 0.1 TH/MM3 (0-0.4); EOSINOPHIL % 1.9 % (0.0-4.0); HEMATOCRIT 25.3 % (39.0-51.0); HEMOGLOBIN 8.8 GM/DL (13.0-17.0); LYMPH % 18.7 % (9.0-44.0); LYMPHOCYTE # 1.4 TH/MM3 (1.0-4.8); MEAN CELL VOLUME 89.1 FL (80.0-100.0); MEAN CORPUSCULAR HEMOGLOBIN 30.8 PG (27.0-34.0); MEAN CORPUSCULAR HGB CONC 34.6 % (32.0-36.0); MEAN PLATELET VOLUME 7.9 FL (7.0-11.0); MONO % 10.6 % (0.0-8.0); MONOCYTE # 0.8 TH/MM3 (0-0.9); NEUT % 68.3 % (16.0-70.0); PLATELET COUNT 175 TH/MM3 (150-450); RED BLOOD COUNT 2.84 MIL/MM3 (4.50-5.90); RED CELL DISTRIBUTION WIDTH 15.3 % (11.6-17.2); WHITE BLOOD COUNT 7.6 TH/MM3 (4.0-11.0)
[2018-03-11 21:53] LABS: ALBUMIN 2.8 GM/DL (3.4-5.0); AST (GOT) 17 U/L (15-37); BICARBONATE 25.9 MEQ/L (21.0-32.0); BLOOD UREA NITROGEN 24 MG/DL (7-18); CALCIUM 8.4 MG/DL (8.5-10.1); CHLORIDE 103 MEQ/L (98-107); CREATININE 1.53 MG/DL (0.60-1.30); GLOMERULAR FILTRATION RATE 44 ML/MIN (>89); GLUCOSE,RANDOM 120 MG/DL (74-106); MAGNESIUM 1.8 MG/DL (1.5-2.5); SODIUM (NA) 137 MEQ/L (136-145)
[2018-03-11 21:58] LABS: ALKALINE PHOSPHATASE 54 U/L (45-117); ALT (GPT) 13 U/L (12-78); TOTAL BILIRUBIN ADULT 0.5 MG/DL (0.2-1.0); TOTAL PROTEIN 6.9 GM/DL (6.4-8.2)
[2018-03-11] MEDS ORDERED: SODIUM CHLOR 0.9% 1000 ML INJ 1,000 ML IV ONE (23:30)
[2018-03-12] VITALS (9 sets, daily range): BP systolic 120–159; BP diastolic 56–73; PULSE 66–91; RESP 16–18; TEMP 97.2–100.6; O2SAT 93–97
[2018-03-12] MEDS: ACETAMINOPHEN 325 MG TAB PO PRN ×6 (00:31→19:43)
[2018-03-12] MEDS ORDERED: IOHEXOL 350 MG/ML 10 ML VIAL (for RAD DIAG) IVCONTRAST ONE (01:06)
--- NOTE | 2018-03-12 01:34 | RADRPT ---
EXAM DATE/TIME: 03/12/2018 01:06 [facility] COMPARISON: No previous studies available for comparison. INDICATIONS : Shortness of breath. IV CONTRAST: 75 cc Omnipaque 350 (iohexol) IV RADIATION DOSE: 10.7 CTDIvol (mGy) MEDICAL HISTORY : Hypertension. Chronic obstructive pulmonary disease. SURGICAL HISTORY : Pacemaker. Knee 2 days ago ENCOUNTER: Initial ACUITY: 1 day PAIN SCALE: 4/10 LOCATION: Bilateral chest TECHNIQUE: Volumetric scanning of the chest was performed using a pulmonary embolism protocol MIP images were re constructed. Using automated exposure control and adjustment of the mA and/or kV according to patien t size, radiation dose was kept as low as reasonably achievable to obtain optimal diagnostic quality images. DICOM format image data is available electronically for review and comparison. Follow-up recommendations for detected pulmonary nodules are based at a minimum on nodule size and pa tient risk factors according to Fleischner Society Guidelines. FINDINGS: PULMONARY ARTERIES: No filling defects are seen in the pulmonary arteries through the segmental level. LUNGS: There is no consolidation or pneumothorax . No concerning pulmonary nodule is visualized. Interstiti al edema. PLEURAE: There is no pleural thickening or pleural effusion. Fissural thickening. MEDIASTINUM: There is good visualization of the great vessels of the middle mediastinum. No evidence of mediastin al or hilar adenopathy/mass. Coronary artery calcifications. MUSCULOSKELETAL: Within normal limits for patient age. MISCELLANEOUS: The visualized upper abdominal organs demonstrate no acute abnormality. CONCLUSION: 1. No evidence for pulmonary embolism. 2. No infiltrate or mass. 3. Coronary artery calcifications. 4. Cardiomegaly and some interstitial edema. León Merchant MD on March 12, 2018 at 1:30 Board Certified Radiologist. This report was verified electronically.
[2018-03-12] MEDS: LACTATED RINGER'S 1000 ML INJ 1,000 ML IV SCH ×2 (02:18→14:48)
[2018-03-12] MEDS: metFORMIN HCL 500 MG TAB PO SCH (02:29)
[2018-03-12] MEDS: KETOROLAC TROMETHAMINE 30 MG/ML (IVP) VIAL IVP SCH ×2 (03:14→08:29)
[2018-03-12] MEDS: GABAPENTIN 300 MG CAP PO SCH ×2 (04:40→19:42)
[2018-03-12] MEDS: INSULIN ASPART SUPPLEMENTAL SCALE SQ SCH ×4 (07:05→21:42)
[2018-03-12] MEDS: METFORMIN HOLD POST IV CONTRAST SCH (07:30)
--- NOTE | 2018-03-12 07:35 | PD.ORT.PN ---
Subjective Post Op Day #: 2 Subjective Remarks He is doing well. He has some knee pain. He is now using Tylenol as analgesic. Apparently, a combination of his higher dose of hydrocodone as well as a residual of his general anesthetic may have contributed to some confusion last night. He apparently had an episode where he was confused last night. The hospitalist made some interventions. Range of Motion -5 extension to 86 of flexion. Distance Walked 150 feet in afternoon with PT. Objective Vitals Vital Signs Date Time Temp Pulse Resp B/P (MAP) Pulse Ox O2 Delivery O2 Flow Rate FiO2 03/12/18 06:42 99.1 75 16 121/60 (80) 94 03/12/18 01:14 100.6 91 16 159/70 (99) 93 03/11/18 20:16 98.6 85 18 154/77 (102) 99 03/11/18 11:32 98.2 87 18 126/57 (80) 96 03/11/18 09:03 18 03/11/18 07:54 98.2 62 18 120/55 (76) 99 I/O 03/11/18 03/11/18 03/11/18 03/12/18 03/12/18 03/12/18 07:00 15:00 23:00 07:00 15:00 23:00 Intake Total 1340 ml 300 ml Output Total 935 ml Balance 405 ml 300 ml Intake Oral 480 ml 300 ml IV Total 860 ml Output Urine Total 900 ml Drainage Total 35 ml Result Diagram: 03/11/18210603/11/182106 Imaging Last 24 hours Impressions Knee X-Ray 03/10/18 1248 Signed Impressions: Service Date/Time: Saturday, March 10, 2018 13:49 - CONCLUSION: 1. Status post left knee arthroplasty in anatomic alignment without significant acute bony fracture. Kobe Rios MD Procedures Left total knee arthroplasty using [place] Triathlon prosthesis (noncemented) on 03/10/2018. Objective Remarks He is resting comfortably, supine in bed, in the CPM. The neurovascular status is intact. The dressing is dry and intact. Assessment & Plan Ortho Post Op Day #: 2 Problem List: (1) Primary osteoarthritis of left knee ICD Codes: M17.12 - Unilateral primary osteoarthritis, left knee Status: Resolved (2) Status post total left knee replacement ICD Codes: Z96.652 - Presence of left artificial knee joint Plan: Continue postop care and PT. Assessment and Plan Condition: Good. Orthopedically stable. DVT prophylaxis: TEDs, resumption of warfarin, sequentials. Discharge plans: Home with home health care, probably tomorrow. He needs to be observed for another day because of his sensorium changes. An appointment was scheduled through the office. Prescriptions: [place] 7.5/325 Forest Darby MD (Charles) Mar 12, 2018 07:35
[2018-03-12] MEDS ORDERED: SOLIQUA SQ SCH (08:00)
[2018-03-12] MEDS ORDERED: [UNRECOGNIZED DRUG - OTHER] SQ SCH (08:00)
[2018-03-12] MEDS: CHOLECALCIFEROL (VIT D3) 1000 UNIT TAB PO SCH (08:31)
[2018-03-12] MEDS: MULTIVITAMIN TAB PO SCH (08:31)
[2018-03-12] MEDS: FUROSEMIDE 20 MG TAB PO SCH (08:31)
[2018-03-12] MEDS: MONTELUKAST SODIUM 10 MG TAB PO SCH (08:31)
[2018-03-12] MEDS: ATORVASTATIN 40 MG TAB PO SCH (08:31)
[2018-03-12] MEDS: DOCUSATE SODIUM 100 MG CAP PO SCH ×2 (08:31→19:43)
[2018-03-12] MEDS: FLUTICASONE PROPIONATE 50 MCG/ACT 16 GM NASAL SPRAY EACH NARE SCH (08:53)
[2018-03-12] MEDS: BUDESONIDE-FORMOTEROL 160/4.5 MCG INHALER INH SCH ×2 (08:53→21:15)
[2018-03-12 08:55] LABS: HEMATOCRIT 24.5 % (39.0-51.0); HEMOGLOBIN 8.4 GM/DL (13.0-17.0)
[2018-03-12] MEDS ORDERED: WARFARIN SOD 5 MG TAB PO SCH (16:00)
--- NOTE | 2018-03-12 16:37 | EKG ---
Date Performed: 03/11/2018 Time Performed: 21:12:30 PTAGE: 77 years EKG: ELECTRONIC VENTRICULAR PACEMAKER ABNORMAL RHYTHM ECG PREVIOUS TRACING : 08/30/2010 20.12 Since the previous tracing, no significant change noted DOCTOR: Claus Jason Interpretating Date/Time 03/12/2018 16:31:39
--- NOTE | 2018-03-12 16:48 | HHI.PR ---
Subjective Remarks Patient seen earlier today. Had some issues with confusion presumably from pain medication. He is back to his baseline. Discussed with his at bedside. Objective Vitals Vital Signs Date Time Temp Pulse Resp B/P (MAP) Pulse Ox O2 Delivery O2 Flow Rate FiO2 03/12/18 12:00 98.4 76 18 121/56 (77) 97 03/12/18 10:12 95 Nasal Cannula 3.00 03/12/18 08:00 97.2 66 18 120/58 (78) 96 03/12/18 06:42 99.1 75 16 121/60 (80) 94 03/12/18 01:14 100.6 91 16 159/70 (99) 93 03/11/18 20:16 98.6 85 18 154/77 (102) 99 I/O 03/11/18 03/11/18 03/11/18 03/12/18 03/12/18 03/12/18 07:00 15:00 23:00 07:00 15:00 23:00 Intake Total 1340 ml 300 ml Output Total 935 ml 600 ml Balance 405 ml 300 ml -600 ml Intake Oral 480 ml 300 ml IV Total 860 ml Output Urine Total 900 ml 600 ml Drainage Total 35 ml Result Diagram: 03/12/18 0810 03/11/182106 Objective Remarks GENERAL: This is a well-nourished, well-developed patient, in no apparent distress. CARDIOVASCULAR: Normal rate and regular rhythm without murmurs, gallops, or rubs. RESPIRATORY: Good respiratory efforts. Breath sounds equal and clear to auscultation bilaterally. GASTROINTESTINAL: Abdomen soft, non-tender, non-distended. Normal active bowel sounds MUSCULOSKELETAL: Left knee postop. In immobilizer. Neurovascularly intact distally at the toes. NEURO: Alert & Oriented x4 to person, place, time, situation. Moves all ext x4 PSYCH: Appropriate mood and affect. A/P Problem List: (1) Primary osteoarthritis of left knee ICD Code: M17.12 - Unilateral primary osteoarthritis, left knee Status: Resolved (2) Status post total left knee replacement ICD Code: Z96.652 - Presence of left artificial knee joint (3) Diabetes ICD Code: E11.9 - Type 2 diabetes mellitus without complications (4) Hypertension ICD Code: I10 - Essential (primary) hypertension (5) Atrial fibrillation ICD Code: I48.91 - Unspecified atrial fibrillation Assessment and Plan 77-year-old male admitted for left knee arthroplasty: Left knee arthroplasty: - Routine postoperative care per orthopedics - Pain control - Early PT Diabetes: Patient reports this has been fairly controlled. He is on Soliqua which is a combination of Insulin Glargine and Lixisenatide. Not on formulary at the hospital. -Okay for patient to use his on medication. Acute encephalopathy: Likely secondary to medications. Quickly resolved. - Patient to use Tylenol as needed for pain. Atrial fibrillation/history of pacemaker placement: -Coumadin restarted per orthopedics. Consider bridging with Lovenox on discharge. Discharge Planning Hospital is cleared for discharge. Odell Shell MD Mar 12, 2018 16:48
[2018-03-12] MEDS: DOXAZOSIN MESYLATE 4 MG TAB PO SCH (19:42)
[2018-03-12] MEDS: DONEPEZIL HCL 5 MG TAB PO SCH (19:42)
[2018-03-12] MEDS: FINASTERIDE 5 MG TAB PO SCH (19:43)
[2018-03-12] MEDS: PANTOPRAZOLE SOD 40 MG DELAYED RELEASE TAB PO SCH (19:43)
[2018-03-12] MEDS: POTASSIUM CHLORIDE 10 MEQ CONTROLLED RELEASE TAB PO SCH (19:43)
[2018-03-13] VITALS: BP 135/61; PULSE 85; RESP 18; TEMP 100.1; O2SAT 96
[2018-03-13] MEDS: ACETAMINOPHEN 325 MG TAB PO PRN ×4 (00:18→14:25)
[2018-03-13] MEDS: LACTATED RINGER'S 1000 ML INJ 1,000 ML IV SCH ×2 (03:18→16:31)
[2018-03-13 04:00] VITALS: BP 126/58; PULSE 102; RESP 20; TEMP 98.5; O2SAT 95
[2018-03-13] MEDS: GABAPENTIN 300 MG CAP PO SCH (05:31)
--- NOTE | 2018-03-13 06:08 | PD.ORT.PN ---
Subjective Post Op Day #: 3 Subjective Remarks He is doing somewhat better. He does have some minimal confusion at times. He had very limited ambulation but indicated that he is "tired". Some of this could be due to his underlying medical conditions. Range of Motion 0 extension to 90 of flexion. Distance Walked 15 feet with physical therapy. Objective Vitals Vital Signs Date Time Temp Pulse Resp B/P (MAP) Pulse Ox O2 Delivery O2 Flow Rate FiO2 03/13/18 04:00 98.5 102 20 126/58 (80) 95 03/13/18 00:00 100.1 85 18 135/61 (85) 96 03/12/18 21:54 80 03/12/18 20:28 95 Nasal Cannula 2.00 03/12/18 20:00 99.1 82 18 129/73 (91) 95 03/12/18 16:00 98.1 79 18 159/71 (100) 96 03/12/18 12:00 98.4 76 18 121/56 (77) 97 03/12/18 10:12 95 Nasal Cannula 3.00 03/12/18 08:00 97.2 66 18 120/58 (78) 96 03/12/18 06:42 99.1 75 16 121/60 (80) 94 I/O 03/12/18 03/12/18 03/12/18 03/13/18 03/13/18 03/13/18 07:00 15:00 23:00 07:00 15:00 23:00 Intake Total 600 ml Output Total 600 ml Balance 600 ml -600 ml Intake Oral 600 ml Output Urine Total 600 ml # Voids 4 # Bowel Movements 0 Result Diagram: 03/12/18 0810 03/11/187 Imaging Last 24 hours Impressions Knee X-Ray 03/10/18 1248 Signed Impressions: Service Date/Time: Saturday, March 10, 2018 13:49 - CONCLUSION: 1. Status post left knee arthroplasty in anatomic alignment without significant acute bony fracture. Kobe Rios MD Procedures Left total knee arthroplasty using [place] Triathlon prosthesis (noncemented) on 03/10/2018. Objective Remarks He is resting comfortably, supine in bed, in the CPM. The neurovascular status is intact. The dressing is dry and intact. The wound is clean and dry with no erythema. Assessment & Plan Ortho Post Op Day #: 3 Problem List: (1) Primary osteoarthritis of left knee ICD Codes: M17.12 - Unilateral primary osteoarthritis, left knee Status: Resolved (2) Status post total left knee replacement ICD Codes: Z96.652 - Presence of left artificial knee joint Plan: Continue postop care and PT. Assessment and Plan Condition: Good. Orthopedically stable. DVT prophylaxis: TEDs, resumption of warfarin, sequentials. Discharge plans: Home with home health care versus [facility] versus referral to [facility]. An appointment was scheduled through the office. Prescriptions: [place] 7.5/325 Forest Darby MD (Charles) Mar 13, 2018 06:08
[2018-03-13] MEDS: METFORMIN HOLD POST IV CONTRAST SCH (07:47)
[2018-03-13 08:00] VITALS: BP 123/62; PULSE 89; PULSE 94; RESP 18; TEMP 98.7; O2SAT 91
[2018-03-13] MEDS: INSULIN ASPART SUPPLEMENTAL SCALE SQ SCH ×2 (08:38→11:35)
[2018-03-13] MEDS: FLUTICASONE PROPIONATE 50 MCG/ACT 16 GM NASAL SPRAY EACH NARE SCH (08:40)
[2018-03-13] MEDS: BUDESONIDE-FORMOTEROL 160/4.5 MCG INHALER INH SCH (08:40)
[2018-03-13] MEDS: DOCUSATE SODIUM 100 MG CAP PO SCH (08:40)
[2018-03-13] MEDS: ATORVASTATIN 40 MG TAB PO SCH (08:40)
[2018-03-13] MEDS: FUROSEMIDE 20 MG TAB PO SCH (08:41)
[2018-03-13] MEDS: MONTELUKAST SODIUM 10 MG TAB PO SCH (08:41)
[2018-03-13] MEDS: CHOLECALCIFEROL (VIT D3) 1000 UNIT TAB PO SCH (08:41)
[2018-03-13] MEDS: MULTIVITAMIN TAB PO SCH (08:41)
[2018-03-13 08:42] VITALS: O2SAT 91
[2018-03-13 12:00] VITALS: BP 136/67; PULSE 86; RESP 18; TEMP 99; O2SAT 94
[2018-03-13] MEDS ORDERED: SODIUM CHLOR 0.9% 250 ML INJ 250 ML IV ONE (14:45)
--- NOTE | 2018-03-13 14:45 | HHI.PR ---
Subjective Remarks Patient is very weak today. Had a hard time with PT. Some mild shortness of breath. Hemoglobin trended down to 8.4, a three point drop from his baseline. Objective Vitals Vital Signs Date Time Temp Pulse Resp B/P (MAP) Pulse Ox O2 Delivery O2 Flow Rate FiO2 03/13/18 12:00 99.0 86 18 136/67 (90) 94 03/13/18 10:35 16 03/13/18 08:42 91 Nasal Cannula 4.00 03/13/18 08:00 98.7 94 18 123/62 (82) 91 03/13/18 08:00 89 03/13/18 04:00 98.5 102 20 126/58 (80) 95 03/13/18 00:00 100.1 85 18 135/61 (85) 96 03/12/18 21:54 80 03/12/18 20:28 95 Nasal Cannula 2.00 03/12/18 20:00 99.1 82 18 129/73 (91) 95 03/12/18 16:00 98.1 79 18 159/71 (100) 96 I/O 03/12/18 03/12/18 03/12/18 03/13/18 03/13/18 03/13/18 07:00 15:00 23:00 07:00 15:00 23:00 Intake Total 600 ml 240 ml Output Total 600 ml 700 ml Balance 600 ml -600 ml -460 ml Intake Oral 600 ml 240 ml Output Urine Total 600 ml 700 ml # Voids 4 # Bowel Movements 0 0 Result Diagram: 03/12/18 0810 03/11/182106 Objective Remarks GENERAL: This is a well-nourished, well-developed patient, in no apparent distress. CARDIOVASCULAR: Rate in the 90's and regular rhythm without murmurs, gallops, or rubs. RESPIRATORY: Good respiratory efforts. Breath sounds equal and clear to auscultation bilaterally. GASTROINTESTINAL: Abdomen soft, non-tender, non-distended. Normal active bowel sounds MUSCULOSKELETAL: Left knee postop. In immobilizer. Neurovascularly intact distally at the toes. NEURO: Alert & Oriented x4 to person, place, time, situation. Moves all ext x4. Generalized weakness. PSYCH: Appropriate mood and affect. A/P Problem List: (1) Primary osteoarthritis of left knee ICD Code: M17.12 - Unilateral primary osteoarthritis, left knee Status: Resolved (2) Status post total left knee replacement ICD Code: Z96.652 - Presence of left artificial knee joint (3) Diabetes ICD Code: E11.9 - Type 2 diabetes mellitus without complications (4) Hypertension ICD Code: I10 - Essential (primary) hypertension (5) Atrial fibrillation ICD Code: I48.91 - Unspecified atrial fibrillation Assessment and Plan 77-year-old male admitted for left knee arthroplasty: Left knee arthroplasty: - Routine postoperative care per orthopedics - Pain control - Early PT Diabetes: Patient reports this has been fairly controlled. He is on Soliqua which is a combination of Insulin Glargine and Lixisenatide. Not on formulary at the hospital. -Okay for patient to use his on medication. Acute encephalopathy: Likely secondary to medications. Quickly resolved. - Patient to use Tylenol as needed for pain. Atrial fibrillation/history of pacemaker placement: -Coumadin restarted per orthopedics. Acute blood loss anemia: 3 point drop in hemoglobin. He is symptomatic with extreme fatigue, SOB, and intermittent tachycardia. He does have a cardiac history. His reports a history of blood transfusion for anemia. - Transfuse 1 unit of PRBC. Follow H&H in rehab. Discharge Planning Hospitalist cleared for discharge to inpatient rehab after blood transfusion today. Odell Shell MD Mar 13, 2018 14:45
[2018-03-13 15:50] VITALS: BP 131/60; PULSE 80; RESP 18; TEMP 98.3; O2SAT 97
[2018-03-13] MEDS: WARFARIN SOD 2.5 MG TAB PO SCH (16:48)
[2018-03-14] MEDS ORDERED: metFORMIN HCL 500 MG TAB PO SCH (08:00)
[2018-03-15] MEDS ORDERED: AZIT250T3 PO (07:32)
[2018-04-09] MEDS ORDERED: IOHEXOL 350 MG/ML 10 ML VIAL (for RAD DIAG) IVCONTRAST ONE (01:06)
== END 2018-03-13 17:15 | DRG 469 ==
LOC: HSDI 07:22 → N06B 16:41 → N06A 03-11 20:29
PROVIDERS: ADMIT Orthopaedic Surgery; ATTEND Orthopaedic Surgery
PROC: 3E0T3BZ Introduction of Anesthetic Agent into Peripheral Nerves and Plexi, Percutaneous Approach (ICD-10-PCS; 2018-03-10)
PROC: 0SRD0JA Replacement of Left Knee Joint with Synthetic Substitute, Uncemented, Open Approach (ICD-10-PCS; principal; 2018-03-10 10:19)
DX: M17.12 Unilateral primary osteoarthritis, left knee (principal); G92 Toxic encephalopathy; I50.9 Heart failure, unspecified; I11.0 Hypertensive heart disease with heart failure; G20 Parkinson's disease; D62 Acute posthemorrhagic anemia; J44.9 Chronic obstructive pulmonary disease, unspecified; I48.91 Unspecified atrial fibrillation; E11.9 Type 2 diabetes mellitus without complications; M25.762 Osteophyte, left knee; M21.062 Valgus deformity, not elsewhere classified, left knee; Z88.1 Allergy status to other antibiotic agents; Z88.0 Allergy status to penicillin; N40.0 Benign prostatic hyperplasia without lower urinary tract symptoms; F02.80 Dementia in other diseases classified elsewhere, unspecified severity, without behavioral disturbance, psychotic disturbance, mood disturbance, and anxiety; T40.2X5A Adverse effect of other opioids, initial encounter; T88.59XA Other complications of anesthesia, initial encounter; Y92.230 Patient room in hospital as the place of occurrence of the external cause; Z79.01 Long term (current) use of anticoagulants; Z79.84 Long term (current) use of oral hypoglycemic drugs; Z88.5 Allergy status to narcotic agent; Z95.0 Presence of cardiac pacemaker
CPT/HCPCS: 36415; 36600; 70450; 71275; 73560; 80053; 82805; 82948; 83735; 83880; 84484; 85014; 85018; 85025; 85379; 85610; 86850; 86900; 86901; 93005; 94150; C1776; C9290; J0131; J0690; J1170; J1580; J1885; J2250; J2710; J3010; J7030; J7120; Q9967

== ENCOUNTER 2018-03-15 08:12 | Inpatient (IN) | payer MEDICARE ==
[2018-03-15] VITALS (9 sets, daily range): BP systolic 156–162; BP diastolic 56–73; PULSE 75–99; RESP 16–28; TEMP 97.7–99; O2SAT 94–100
[~2018-03-15] VITALS: Ht 167.6 cm; Wt 93.2 kg
[~2018-03-15 08:12] MED LIST changes: +AZIT250T3 PO; +HYDR-3580 PO; -LISI2.5T3 PO
[2018-03-15] MEDS ORDERED: MAGNESIUM HYDROXIDE SUSP 30 ML CUP PO PRN (08:30)
[2018-03-15] MEDS ORDERED: ONDANSETRON HCL 4 MG/2 ML VIAL IVP PRN (08:30)
[2018-03-15] MEDS ORDERED: SODIUM CHLORIDE 0.9% FLUSH 10 ML FLUSH IV FLUSH PRN (08:30)
[2018-03-15] MEDS ORDERED: LACTULOSE SYRUP 20 GM/30 ML CUP PO PRN (08:30)
[2018-03-15] MEDS ORDERED: NALOXONE HCL 0.4 MG/ML AMP IV PUSH PRN (08:30)
[2018-03-15] MEDS ORDERED: SENNOSIDES 8.6 MG TAB PO PRN (08:30)
[2018-03-15] MEDS ORDERED: BISACODYL 10 MG SUPP RECTAL PRN (08:30)
[2018-03-15] MEDS ORDERED: DEXTROSE 50% IN WATER 50 ML VIAL(D50) IV PUSH PRN ×2 (08:45→10:00)
[2018-03-15] MEDS ORDERED: methylPREDNISolone SOD SUCC 125 MG/2 ML VIAL IV PUSH ONE (08:45)
[2018-03-15] MEDS ORDERED: GLUCAGON 1 MG/ML VIAL OTHER PRN ×2 (08:45→10:00)
[2018-03-15] MEDS ORDERED: SODIUM CHLOR 0.9% 1000 ML INJ 1,000 ML IV SCH (09:00)
[2018-03-15] MEDS: AZITHROMYCIN INJ 500 MG in SODIUM CHLOR 0.9% 250 ML INJ 250 ML IV SCH (09:33)
[2018-03-15] MEDS: SODIUM CHLORIDE 0.9% FLUSH 10 ML FLUSH IV FLUSH SCH ×2 (09:33→21:09)
[2018-03-15] MEDS: DOCUSATE SODIUM 50 MG/SENNA 8.6 MG TAB PO SCH ×2 (09:34→21:11)
[2018-03-15 09:40] LABS: INTERNATIONAL NORMALIZED RATIO 1.7 RATIO; PROTHROMBIN TIME - PATIENT 16.7 SEC (9.8-11.6)
[2018-03-15] MEDS: RESP: ALBUTEROL 2.5 MG/IPRATROPIUM 0.5 MG NEB (SCH) NEB ×2 (09:48→19:52)
--- NOTE | 2018-03-15 09:54 | HHI.HP ---
HPI Service [facility] Hospitalists Primary Care Physician Unknown Admission Diagnosis Respiratory failure Diagnoses: Chief Complaint: sob Travel History International Travel<30 Days: No Contact w/Intl Traveler <30 Da: No Traveled to Known Affected Are: No History of Present Illness This is a 77-year-old male with history of hypertension, diabetes mellitus, CHF , atrial fibrillation this, COPD and BPH, previously admitted on March 10, 2018 for total left knee replacement. His hospital course was complicated with dyspnea, dizziness and tachycardia. Patient was ruled out for PE. It was thought that this may be secondary to anemia for which she received 1 unit of packed red blood cells. He was then transferred to [facility] 03/13/2018. Patient was found to have pneumonia and was started on ceftriaxone and azithromycin and bronchodilators. However, this morning around 5 AM, patient started having shivering, and increasing shortness of breath, rapid response team was called. Patient was hypoxic in the low 80s and patient was placed on a nonrebreather. Patient was then transferred to the intensive care unit. Presently, patient feels better than this morning, still short of breath, complaining of dry cough but not more than usual. No note of fever but patient had episodes of chills and shivers. Patient denies any chest pain, palpitations , dizziness or lightheadedness. In fact, after receiving blood, he felt better. Per patient, he was not short of breath during or after the blood transfusion, there is also no note of itching, rash, lip and tongue thickening, Review of Systems ROS Limitations: Other (All other pertinent systems were reviewed and are negative.) Past Family Social History Past Medical History Diabetes mellitus Hypertension CHF A. fib Osteoarthritis COPD Early dementia BPH Past Surgical History Hernia repair x2 Right knee replacement Pacemaker placement Left knee replacement Reported Medications Azithromycin 250 Mg Tab 500 Mg PO DAILY 7 Days Hydrocodone-Acetamin 7.5-325 (Hydrocodone/Acetaminophen) 7.5 Mg-325 Mg Tablet 1 Tab PO Q4H PRN Nasonex Nasal [place] (Mometasone Furoate) 50 Mcg/Act Naspr 1 [place] EACH NARE DAILY Tylenol Extra Strength (Acetaminophen) 500 Mg Tablet 1 Tab PO DIRECTED Symbicort Inh (Budesonide/Formoterol Fumarate) 160-4.5 Mcg/Act Aero 2 Puff INH Q12HR Aller-Chlor (Chlorpheniramine Maleate) 4 Mg Tab 4 Mg PO HS PRN Multi-Vitamin Daily (Multiple Vitamin) 1 Tab Tab 1 Tab PO DAILY Vitamin D3 (Cholecalciferol) 1,000 Unit Tab 1,000 Units PO DAILY Atorvastatin (Atorvastatin Calcium) 40 Mg Tab 40 Mg PO DAILY Finasteride 5 Mg Tab 5 Mg PO HS Do not crush. Donepezil 10 Mg Tab 10 Mg PO HS Pantoprazole (Pantoprazole Sodium) 40 Mg Tab 40 Mg PO HS Jantoven (Warfarin) 2.5 Mg Tab 2.5 Mg PO WEIR,TU,WE,FR,SA Jantoven (Warfarin) 5 Mg Tab 5 Mg PO MO,TH Potassium Chloride ER (Potassium Chloride) 10 Meq Tab 10 Meq PO HS Doxazosin (Doxazosin Mesylate) 4 Mg Tab 4 Mg PO HS Furosemide 20 Mg Tab 20 Mg PO DAILY Metformin (Metformin HCl) 500 Mg Tab 500 Mg PO DAILYAC With a meal Gabapentin 300 Mg Cap 1,200 Mg PO HS Gabapentin 300 Mg Cap 900 Mg PO DAILY@0600 Montelukast (Montelukast Sodium) 10 Mg Tab 10 Mg PO DAILY Soliqua 100/33 100-33 Unt-Mcg/ml (Insulin Glargine-Lixisenatide) 100 Unit-33 Mcg /Ml (3 Ml) Inj 35 SQ DAILYAC Allergies: Coded Allergies: adhesive tape (Verified Allergy, Severe, RASH, 03/13/18) amoxicillin (Unverified Allergy, Severe, RASH shortness of breath, 03/13/18 ) bacitracin (Verified Allergy, Severe, RASH, 03/13/18) chlorhexidine (Verified Allergy, Severe, rash, 03/13/18) morphine (Unverified Allergy, Severe, N/V, 03/13/18) neomycin (Verified Allergy, Severe, RASH, 03/13/18) polymyxin B (Verified Allergy, Severe, RASH, 03/13/18) Penicillins (Verified Allergy, Unknown, RASH shortness of breath, 03/13/18) Uncoded Allergies: "cillins" (Allergy, Unknown, Shortness of Breath, 03/13/18) narcotics (Allergy, Unknown, Confusion, 03/13/18) Family History 1 Mother: Stroke Father: Stroke Social History Tobacco: Former smoker Alcohol use or illicit drug use: Denies Physical Exam Physical Exam In mild respiratory distress, on nonrebreather, can speak complete sentences. Well-nourished. PERRL, pink conjunctiva without injection, anicteric Nose without bleeding, airway patent Supple neck Normal rate and regular rhythm, no murmurs gallops or rubs appreciated. Decreased breath sounds bilaterally, no wheezing, crackles on the left mid to base, occasional rhonchi on the right upper lobe. Normal bowel sounds, soft, non-tender, nondistended, no guarding. Extremities without clubbing, cyanosis, or edema. No rash of generalized distribution. Dressings on the left knee. AAO x3, no cranial nerve deficits, moves all 4 extremities, no focal neurologic deficits Laboratory Laboratory Tests Test 03/15/18 09:17 Prothrombin Time 16.7 Prothromb Time International Ratio 1.7 Imaging Chest x-ray personally reviewed showed right upper and lower lobe consolidation , beginning left middle lobe infiltrate. Caprini VTE Risk Assessment Caprini VTE Risk Assessment: Mod/High Risk (score >= 2) Caprini Risk Assessment Model Point Value = 1 Point Value = 2 Point Value = 3 Point Value = 5 Age 41-60 Minor surgery BMI > 25 kg/m2 Swollen legs Varicose veins or History of unexplained or recurrent spontaneous Oral contraceptives or hormone replacement Sepsis (< 1 month) Serious lung disease, including pneumonia (< 1 month) Abnormal pulmonary function Acute myocardial infarction Congestive heart failure (< 1 month) History of inflammatory bowel disease Medical patient at bed rest Age 61-74 Arthroscopic surgery Major open surgery (> 45 min) Laparoscopic surgery (> 45 min) Malignancy Confined to bed (> 72 hours) Immobilizing plaster cast Central venous access Age >= 75 History of VTE Family history of VTE Factor V Leiden Prothrombin [id number] Lupus anticoagulant Anticardiolipin antibodies Elevated serum homocysteine Heparin-induced thrombocytopenia Other congenital or acquired thrombophilia Stroke (< 1 month) Elective arthroplasty Hip, pelvis, or leg fracture Acute spinal cord injury (< 1 month) Prophylaxis Regimen Total Risk Factor Score Risk Level Prophylaxis Regimen 0-1 Low Early ambulation 2 Moderate Order ONE of the following: *Sequential Compression Device (SCD) *Heparin 5000 units SQ BID 3-4 Higher Order ONE of the following medications: *Heparin 5000 units SQ TID *Enoxaparin/Lovenox 40 mg SQ daily (WT < 150 kg, CrCl > 30 mL/min) *Enoxaparin/Lovenox 30 mg SQ daily (WT < 150 kg, CrCl > 10-29 mL/min) *Enoxaparin/Lovenox 30 mg SQ BID (WT < 150 kg, CrCl > 30 mL/min) AND/OR *Sequential Compression Device (SCD) 5 or more Highest Order ONE of the following medications: *Heparin 5000 units SQ TID (Preferred with Epidurals) *Enoxaparin/Lovenox 40 mg SQ daily (WT < 150 kg, CrCl > 30 mL/min) *Enoxaparin/Lovenox 30 mg SQ daily (WT < 150 kg, CrCl > 10-29 mL/min) *Enoxaparin/Lovenox 30 mg SQ BID (WT < 150 kg, CrCl > 30 mL/min) AND *Sequential Compression Device (SCD) Assessment and Plan Assessment and Plan This is a 77-year-old male with past medical history significant for HTN, DM, CHF, A. fib, arthritis, COPD, early dementia, and BPH admitted to [place] on for total left knee replacement by Dr. Darby, discharged to [facility] thereafter and subsequently developed hospital-acquired pneumonia, readmitted to the hospital for treatment. Hospital-acquired pneumonia-chest x-ray personally reviewed showed beginning infiltrates in the right upper lobe, repeat chest x-ray this morning shows right upper and lower lobe infiltrate with beginning left middle lobe infiltrate. Patient was placed on ceftriaxone and azithromycin. This is likely hospital-acquired, will change to vancomycin and aztreonam since patient is penicillin allergic, check urinary Legionella and pneumococcal antigen, recheck CBC tomorrow Acute hypoxic respiratory failure on top of chronic respiratory failure-likely secondary to pneumonia, CTA done previously showed negative for PE. On Coumadin. Not a lot of wheezing on examination, doubt COPD exacerbation at this point. We will hold off on steroids. Continue duo nebs every 6 hours and [id number] as needed, Mucinex. Continue pulmonary toilette. Possibly also secondary to congestion after receiving blood, received Lasix, with increasing creatinine, will hold off on further Lasix for now. Recheck BMP tomorrow. Diastolic congestive heart failure-not in exacerbation, last echocardiogram was in 2009 with preserved ejection fraction, hold off on Lasix, recheck echocardiogram. Recheck BMP tomorrow. s/p left knee replacement-continue pain control, patient does not want [place]. Bowel regimen. Tylenol for now. Continue physical therapy. Coumadin for DVT prophylaxis Diabetes mellitus-restart patient's home long-acting insulin with sliding scale , hold off on metformin, continue Accu-Cheks, hemoglobin A1c 6.9 on 02/27/2017. Continue gabapentin for neuropathy. History of COPD-not in exacerbation, continue Symbicort, DuoNeb's as above Hypertension, atrial fibrillation, currently in sinus rhythm-stable, continue Coumadin, recheck INR, continue statins. BPH-Continue home Proscar and Cardura. Early dementia -Continue home dose of Aricept No fluids Diabetic diet Monitror BMP Keeping the ICU for now, possibly transfer later today or tomorrow when stable Discharge to [facility] when ready. No indication for GI prophylaxis DVT prophylaxis-Coumadin Discussed with patient, Megha and nurse Christine. Physician Certification 2 Midnight Certification Type: Admission for Inpatient Services Order for Inpatient Services The services are ordered in accordance with Medicare regulations or non- Medicare payer requirements, as applicable. In the case of services not specified as inpatient-only, they are appropriately provided as inpatient services in accordance with the 2-midnight benchmark. Estimated LOS (days): 2 days is the estimated time the patient will need to remain in the hospital, assuming treatment plan goals are met and no additional complications. Post-Hospital Plan: Inpatient Rehab Ceci Moreira MD Mar 15, 2018 09:54
[2018-03-15] MEDS: guaiFENesin E.R. 600 MG TAB PO SCH ×2 (10:05→21:12)
[2018-03-15] MEDS: LACTOBACILLUS ACIDOPHILUS TAB PO SCH ×2 (10:05→21:10)
[2018-03-15] MEDS: ATORVASTATIN 40 MG TAB PO SCH (10:05)
[2018-03-15] MEDS: ACETAMINOPHEN 325 MG TAB PO PRN ×3 (10:06→23:48)
[2018-03-15] MEDS ORDERED: Vancomycin Consult Pharmacy 1 EA OTHER SCH (10:15)
[2018-03-15] MEDS ORDERED: INSULIN ASPART SUPPLEMENTAL SCALE SQ SCH (12:00)
[2018-03-15] MEDS: INSULIN ASPART SUPPLEMENTAL SCALE SQ SCH ×2 (12:00→21:00)
[2018-03-15] MEDS ORDERED: cefTRIAXone INJ 1,000 MG in SODIUM CHLORIDE 0.9% INJ 100 ML IV SCH (12:00)
[2018-03-15] MEDS: AZTREONAM INJ 1,000 MG in SODIUM CHLORIDE 0.9% INJ 100 ML IV SCH ×2 (13:26→19:56)
[2018-03-15] MEDS ORDERED: methylPREDNISolone SOD SUCC 40 MG/1 ML VIAL IV PUSH SCH (15:00)
[2018-03-15] MEDS ORDERED: WARFARIN SOD 2.5 MG TAB PO SCH (16:00)
[2018-03-15] MEDS: CHOLECALCIFEROL (VIT D3) 1000 UNIT TAB PO SCH (16:39)
[2018-03-15] MEDS: MULTIVITAMIN TAB PO SCH (16:39)
[2018-03-15] MEDS: VANCOMYCIN INJ 2,000 MG in SODIUM CHLORID 0.9% 500 ML INJ 500 ML IV SCH (16:40)
[2018-03-15] MEDS: FINASTERIDE 5 MG TAB PO SCH (21:10)
[2018-03-15] MEDS: GABAPENTIN 300 MG CAP PO SCH (21:10)
[2018-03-15] MEDS: DOXAZOSIN MESYLATE 4 MG TAB PO SCH (21:10)
[2018-03-15] MEDS: DONEPEZIL HCL 5 MG TAB PO SCH (21:11)
[2018-03-15] MEDS: PANTOPRAZOLE SOD 40 MG DELAYED RELEASE TAB PO SCH (21:11)
[2018-03-15] MEDS: BUDESONIDE-FORMOTEROL 160/4.5 MCG INHALER INH SCH (21:13)
[2018-03-15] MEDS: RESP: ALBUTEROL 2.5 MG/IPRATROPIUM 0.5 MG NEB (PRN) NEB (23:40)
[2018-03-16] VITALS (15 sets, daily range): BP systolic 119–151; BP diastolic 57–69; PULSE 61–99; RESP 16–31; TEMP 97.2–98.9; O2SAT 89–100
[2018-03-16] MEDS: AZTREONAM INJ 1,000 MG in SODIUM CHLORIDE 0.9% INJ 100 ML IV SCH ×3 (03:22→21:03)
[2018-03-16] MEDS: ACETAMINOPHEN 325 MG TAB PO PRN ×4 (03:23→21:02)
[2018-03-16] MEDS: RESP: ALBUTEROL 2.5 MG/IPRATROPIUM 0.5 MG NEB (PRN) NEB ×2 (03:51→18:05)
[2018-03-16] MEDS: GABAPENTIN 300 MG CAP PO SCH ×2 (06:03→21:02)
[2018-03-16 07:48] LABS: INTERNATIONAL NORMALIZED RATIO 2.3 RATIO; PROTHROMBIN TIME - PATIENT 23.2 SEC (9.8-11.6)
[2018-03-16 07:55] LABS: AUTOMATED NEUTROPHIL # 4.2 TH/MM3 (1.8-7.7); BASOPHIL % 0.1 % (0.0-2.0); HEMATOCRIT 26.6 % (39.0-51.0); LYMPH % 14.1 % (9.0-44.0); LYMPHOCYTE # 0.7 TH/MM3 (1.0-4.8); MEAN CELL VOLUME 88.6 FL (80.0-100.0); MEAN CORPUSCULAR HGB CONC 33.8 % (32.0-36.0); MEAN PLATELET VOLUME 7.7 FL (7.0-11.0); MONO % 6.8 % (0.0-8.0); MONOCYTE # 0.4 TH/MM3 (0-0.9); PLATELET COUNT 202 TH/MM3 (150-450); WHITE BLOOD COUNT 5.3 TH/MM3 (4.0-11.0)
[2018-03-16] MEDS: INSULIN ASPART SUPPLEMENTAL SCALE SQ SCH ×4 (08:00→21:00)
[2018-03-16 08:10] LABS: ALBUMIN 2.1 GM/DL (3.4-5.0); AST (GOT) 44 U/L (15-37); BICARBONATE 25.4 MEQ/L (21.0-32.0); BLOOD UREA NITROGEN 30 MG/DL (7-18); CALCIUM 8.7 MG/DL (8.5-10.1); CHLORIDE 101 MEQ/L (98-107); GLOMERULAR FILTRATION RATE 59 ML/MIN (>89); GLUCOSE,RANDOM 207 MG/DL (74-106); SODIUM (NA) 136 MEQ/L (136-145)
[2018-03-16 08:11] LABS: ALT (GPT) 26 U/L (12-78)
[2018-03-16 08:14] LABS: ALKALINE PHOSPHATASE 76 U/L (45-117); TOTAL BILIRUBIN ADULT 0.8 MG/DL (0.2-1.0); TOTAL PROTEIN 7.1 GM/DL (6.4-8.2)
[2018-03-16] MEDS: RESP: ALBUTEROL 2.5 MG/IPRATROPIUM 0.5 MG NEB (SCH) NEB ×3 (08:31→20:00)
[2018-03-16] MEDS: SODIUM CHLORIDE 0.9% FLUSH 10 ML FLUSH IV FLUSH SCH ×2 (08:51→21:03)
[2018-03-16] MEDS: AZITHROMYCIN INJ 500 MG in SODIUM CHLOR 0.9% 250 ML INJ 250 ML IV SCH (08:51)
[2018-03-16] MEDS: guaiFENesin E.R. 600 MG TAB PO SCH ×2 (08:51→21:01)
[2018-03-16] MEDS: CHOLECALCIFEROL (VIT D3) 1000 UNIT TAB PO SCH (08:52)
[2018-03-16] MEDS: LACTOBACILLUS ACIDOPHILUS TAB PO SCH ×2 (08:52→21:01)
[2018-03-16] MEDS: ATORVASTATIN 40 MG TAB PO SCH (08:52)
[2018-03-16] MEDS: MULTIVITAMIN TAB PO SCH (08:52)
[2018-03-16] MEDS: DOCUSATE SODIUM 50 MG/SENNA 8.6 MG TAB PO SCH ×2 (08:53→21:01)
[2018-03-16] MEDS: BUDESONIDE-FORMOTEROL 160/4.5 MCG INHALER INH SCH ×2 (08:53→21:03)
[2018-03-16] MEDS: VANCOMYCIN INJ 2,000 MG in SODIUM CHLORID 0.9% 500 ML INJ 500 ML IV SCH (11:26)
--- NOTE | 2018-03-16 11:45 | HHI.PR ---
Subjective Remarks Follow-up [facility] March 16, 2018-patient seen and examined, reported improvement of shortness of breath and denies any chest pain. States, in [facility] Currently afebrile. by the bedside. Objective Vitals Vital Signs Date Time Temp Pulse Resp B/P (MAP) Pulse Ox O2 Delivery O2 Flow Rate FiO2 03/16/18 10:31 16 03/16/18 08:32 100 Nasal Cannula 3.00 03/16/18 06:00 70 03/16/18 04:00 97.9 99 17 151/69 (96) 99 03/16/18 04:00 69 03/16/18 02:00 69 03/16/18 00:00 97.2 76 28 150/67 (94) 95 03/16/18 00:00 69 03/15/18 22:00 99 03/15/18 20:00 78 03/15/18 20:00 97.7 78 24 157/72 (100) 99 03/15/18 19:52 100 Nasal Cannula 5.00 03/15/18 18:00 75 03/15/18 16:00 77 03/15/18 16:00 98.9 77 28 162/73 (102) 95 03/15/18 14:00 92 03/15/18 12:00 99.0 81 16 156/56 (89) 96 03/15/18 12:00 81 I/O 03/15/18 03/15/18 03/15/18 03/16/18 03/16/18 03/16/18 07:00 15:00 23:00 07:00 15:00 23:00 Intake Total 100 ml 1482 ml Output Total 1200 ml 1000 ml Balance -1100 ml 482 ml Intake Oral 680 ml IV Total 100 ml 802 ml Output Urine Total 1200 ml 1000 ml Stool Total 0 ml Result Diagram: 03/16/1843203/16/18 043 Objective Remarks GENERAL: NAD SKIN: Warm and dry. HEAD: Normocephalic. EYES: No scleral icterus. No injection or drainage. NECK: Supple, trachea midline. No JVD or lymphadenopathy. CARDIOVASCULAR: Irregular regular rate and rhythm without murmurs, gallops, or rubs. RESPIRATORY: Breath sounds equal bilaterally. No accessory muscle use. GASTROINTESTINAL: Abdomen soft, non-tender, nondistended. MUSCULOSKELETAL: No cyanosis, or edema. s/p Left knee repair BACK: Nontender without obvious deformity. No CVA tenderness. A/P Problem List: (1) HCAP (healthcare-associated pneumonia) ICD Code: J18.9 - Pneumonia, unspecified organism Assessment and Plan 77-year-old man with Healthcare associated pneumonia Acute on chronic respiratory failure with hypoxia-improving Currently on vancomycin and aztreonam pending culture reports Urinary Legionella and pneumococcal antigens pending DuoNeb as needed Maintain oxygen saturation above 92% s/p left knee replacement- PT to treat the nevi Coumadin for DVT prophylaxis Pain management accordingly Patient requested to be discharged home with home health care when stable and no longer want to go to [facility] Diastolic congestive heart failure- not in exacerbation, last echocardiogram was in 2009 with preserved ejection fraction, hold off on Lasix, recheck echocardiogram. Diabetes mellitus- Continue home long-acting insulin with sliding scale, hold off on metformin, Accu-Cheks, hemoglobin A1c 6.9 on 02/27/2017. Diabetic neuropathy continue gabapentin for neuropathy. History of COPD- not in exacerbation, continue Symbicort, DuoNeb's as above Hypertension, atrial fibrillation, currently in sinus rhythm-stable, continue Coumadin, statins. BPH- Continue home Proscar and Cardura. Early dementia - Continue home dose of Aricept DVT prophylaxis-Coumadin León Baez MD Mar 16, 2018 11:45
[2018-03-16] MEDS ORDERED: WARFARIN SOD 5 MG TAB PO SCH (16:00)
--- NOTE | 2018-03-16 19:00 | ECHRPT ---
Indication: CHF CONCLUSIONS Normal left ventricular size. Mild concentric left ventricular hypertrophy. The left ventricular systolic function is low normal with an estimated ejection fraction in the rang e of 50- 55%. The left atrial size is htnmsgkt-wi-kvrisfix dilated. The right atrial size is moderately dilated. Bjktc-vf-lzns mitral valve regurgitation. Aortic valve sclerosis is present. There is trace tricuspid valve regurgitation. The estimated pulmonary arterial pressure is 44 mmHg. BP: 145 / 64 HR: Rhythm: Sinus MEASUREMENTS (Male / Female) Normal Values Technical Quality:Fair 2D ECHO LV Diastolic Diameter PLAX 5.5 cm 4.2 - 5.9 / 3.9 - 5.3 cm LV Systolic Diameter PLAX 4.3 cm IVS Diastolic Thickness 1.1 cm 0.6 - 1.0 / 0.6 - 0.9 cm LVPW Diastolic Thickness 1.1 cm 0.6 - 1.0 / 0.6 - 0.9 cm LV Relative Wall Thickness 0.4 RV Internal Dim ED PLAX 2.9 cm LVOT Diameter 2.2 cm Aortic Root Diameter 3.3 cm M-MODE AV Cusp Separation MM 1.5 cm DOPPLER AV Peak Velocity 167.5 cm/s AV Peak Gradient 11.2 mmHg AV Mean Gradient 6.0 mmHg AV Velocity Time Integral 34.7 cm LVOT Peak Velocity 89.9 cm/s LVOT Peak Gradient 3.2 mmHg LVOT Velocity Time Integral 18.8 cm AV Area Cont Eq vti 2.1 cm AV Area Cont Eq pk 2.0 cm Mitral E Point Velocity 121.5 cm/s LV E' Lateral Velocity 12.6 cm/s Mitral E to LV E' Lateral Ratio 9.7 LV E' Septal Velocity 7.0 cm/s Mitral E to LV E' Septal Ratio 17.3 TR Peak Velocity 293.0 cm/s TR Peak Gradient 34.3 mmHg Right Atrial Pressure 10.0 mmHg Pulmonary Artery Systolic Pressu 44.3 mmHg Right Ventricular Systolic Press 44.3 mmHg PV Peak Velocity 49.6 cm/s PV Peak Gradient 1.0 mmHg FINDINGS LEFT VENTRICLE Normal left ventricular size. Mild concentric left ventricular hypertrophy. The left ventricular systolic function is low normal with an estimated ejection fraction in the rang e of 50- 55%. RIGHT VENTRICLE Normal right ventricular size and systolic function. LEFT ATRIUM The left atrial size is bbzpzwcf-sv-lclgeyls dilated. RIGHT ATRIUM The right atrial size is moderately dilated. ATRIAL SEPTUM No atrial level shunt is demonstrated by color flow Doppler interrogation. AORTA The aortic root and proximal ascending aorta are not well visualized. MITRAL VALVE Ekoin-ou-ouqx mitral valve regurgitation. AORTIC VALVE Aortic valve sclerosis is present. TRICUSPID VALVE There is trace tricuspid valve regurgitation. The estimated pulmonary arterial pressure is 44.3 mmHg. PULMONARY VALVE No pulmonary valve regurgitation or stenosis. VESSELS The inferior vena cava is normal in size. Angelina Santiago MD, FACC (Electronically Signed) Final Date:16 March 2018 18:59
[2018-03-16] MEDS: DOXAZOSIN MESYLATE 4 MG TAB PO SCH (21:01)
[2018-03-16] MEDS: PANTOPRAZOLE SOD 40 MG DELAYED RELEASE TAB PO SCH (21:01)
[2018-03-16] MEDS: DONEPEZIL HCL 5 MG TAB PO SCH (21:02)
[2018-03-16] MEDS: FINASTERIDE 5 MG TAB PO SCH (21:02)
[2018-03-17] VITALS (9 sets, daily range): BP systolic 123–150; BP diastolic 60–67; PULSE 69–94; RESP 16–18; TEMP 96.8–98.3; O2SAT 3–95
[2018-03-17] MEDS: AZTREONAM INJ 1,000 MG in SODIUM CHLORIDE 0.9% INJ 100 ML IV SCH ×3 (02:26→20:35)
[2018-03-17] MEDS: ACETAMINOPHEN 325 MG TAB PO PRN ×4 (02:27→20:32)
[2018-03-17] MEDS: GABAPENTIN 300 MG CAP PO SCH ×2 (04:58→20:32)
[2018-03-17] MEDS: RESP: ALBUTEROL 2.5 MG/IPRATROPIUM 0.5 MG NEB (SCH) NEB ×3 (07:47→20:21)
--- NOTE | 2018-03-17 07:49 | PD.CONS ---
HPI Service Orthopedic Surgeons Consult Requested By Reason for Consult Follow-up on total knee arthroplasty. Primary Care Physician Jose Reynoso M.D. (PCP) Miguel Angel Rosario M.D. (Band Attacher) Carl Mariee M.D. ([employer]) Admission Diagnosis Respiratory failure Diagnoses: (1) HCAP (healthcare-associated pneumonia) Diagnosis: Principal (2) Status post total left knee replacement Diagnosis: Secondary Chief Complaint: Left total knee arthroplasty History of Present Illness This 77-year-old man had a left total knee arthroplasty carried out on 2017. This was done under a general endotracheal anesthetic with abductor canal block regional and local with Exparel. He tolerated the procedure well. He did have some difficulties postoperatively and was subsequently transferred to [facility] for rehabilitation. Apparently, he had respiratory distress and was readmitted to the intensive care unit and currently to this unit. Past Family Social History Past Medical History Diabetes mellitus Hypertension CHF A. fib Osteoarthritis COPD Early dementia BPH Past Surgical History Hernia repair x2 Right knee replacement Pacemaker placement Left knee replacement Allergies: Coded Allergies: adhesive tape (Verified Allergy, Severe, RASH, 03/13/18) amoxicillin (Unverified Allergy, Severe, RASH shortness of breath, 03/13/18 ) bacitracin (Verified Allergy, Severe, RASH, 03/13/18) chlorhexidine (Verified Allergy, Severe, rash, 03/13/18) morphine (Unverified Allergy, Severe, N/V, 03/13/18) neomycin (Verified Allergy, Severe, RASH, 03/13/18) polymyxin B (Verified Allergy, Severe, RASH, 03/13/18) Penicillins (Verified Allergy, Unknown, RASH shortness of breath, 03/13/18) Uncoded Allergies: "cillins" (Allergy, Unknown, Shortness of Breath, 03/13/18) narcotics (Allergy, Unknown, Confusion, 03/13/18) Active Ordered Medications Current Medications Medications (Trade) Dose Ordered Sig/Asha Route Start Time Stop Time Status Last Admin (NS Flush) 2 ml UNSCH PRN IV FLUSH 03/15/18 08:30 (NS Flush) 2 ml BID IV FLUSH 03/15/18 09:00 03/16/18 21:03 (Tylenol) 650 mg Q4H PRN PO 03/15/18 08:30 03/17/18 02:27 (Zofran Inj) 4 mg Q6H PRN IVP 03/15/18 08:30 (Narcan Inj) 0.4 mg UNSCH PRN IV PUSH 03/15/18 08:30 (Elle-Colace) 1 tab BID PO 03/15/18 09:00 03/16/18 21:01 (Milk Of Magnesia Liq) 30 ml Q12H PRN PO 03/15/18 08:30 (Senokot) 17.2 mg Q12H PRN PO 03/15/18 08:30 (Dulcolax Supp) 10 mg DAILY PRN RECTAL 03/15/18 08:30 (Lactulose Liq) 30 ml DAILY PRN PO 03/15/18 08:30 Azithromycin 500 mg/Sodium Chloride 250 ml @ 250 mls/hr Q24H IV 03/15/18 09:00 03/16/18 08:51 (Duoneb Neb) 1 ampule Q6HR WHILE AWAKE NEB NEB 03/15/18 14:00 03/17/18 07:47 (Duoneb Neb) 1 ampule Q2HR NEB PRN NEB 03/15/18 08:30 03/16/18 18:05 (Lipitor) 40 mg DAILY PO 03/15/18 09:00 03/16/18 08:52 (Symbicort 160-4.5 Mcg Inh) 2 puff Q12HR INH 03/15/18 09:00 03/16/18 21:03 (Vitamin D3) 1,000 units DAILY PO 03/15/18 09:15 03/16/18 08:52 (Aricept) 10 mg HS PO 03/15/18 21:00 03/16/18 21:02 (Cardura) 4 mg HS PO 03/15/18 21:00 03/16/18 21:01 (Proscar) 5 mg HS PO 03/15/18 21:00 03/16/18 21:02 (Neurontin) 1,200 mg HS PO 03/15/18 21:00 03/16/18 21:02 (Neurontin) 900 mg DAILY@0600 PO 03/16/18 06:00 03/17/18 04:58 (Protonix) 40 mg HS PO 03/15/18 21:00 03/16/18 21:01 (Coumadin) 2.5 mg SuTuWeFrSa@1600 PO 03/15/18 16:00 03/15/18 16:39 (Coumadin) 5 mg MoTh@1600 PO 03/16/18 16:00 03/16/18 15:12 (Theragran) 1 tab DAILY PO 03/15/18 09:15 03/16/18 08:52 Pharmacy Profile Note 0 ml @ 0 mls/hr UNSCH OTHER 03/15/18 08:45 (Lactinex) 1 tab Q12HR PO 03/15/18 09:00 03/16/18 21:01 (Mucinex Er) 600 mg BID PO 03/15/18 09:00 03/16/18 21:01 (D50w (Vial) Inj) 50 ml UNSCH PRN IV PUSH 03/15/18 10:00 (Glucagon Inj) 1 mg UNSCH PRN OTHER 03/15/18 10:00 (NovoLOG SUPPLEMENTAL SCALE) 1 ACHS SLIDING SCALE SQ 03/15/18 12:00 Aztreonam 1000 mg/ Sodium Chloride 100 ml @ 200 mls/hr Q8H IV 03/15/18 11:00 03/17/18 02:26 Vancomycin HCl 2000 mg/Sodium Chloride 520 ml @ 257.5 mls/ hr Q24H IV 03/15/18 12:00 03/16/18 11:26 Pharmacy Profile Note 0 ml @ 0 mls/hr UNSCH OTHER 03/15/18 10:15 [place] [place] Info) SPECIFIC LAB TO BE DRAWN:VANCOMYCIN TROUGH DATE TO... ONCE ONCE .XX 03/18/18 11:45 03/18/18 11:46 Reported Meds & Active Scripts Active Azithromycin 250 Mg Tab 500 Mg PO DAILY 7 Days Hydrocodone-Acetamin 7.5-325 (Hydrocodone/Acetaminophen) 7.5 Mg-325 Mg Tablet 1 Tab PO Q4H PRN Reported Nasonex Nasal [place] (Mometasone Furoate) 50 Mcg/Act Naspr 1 [place] EACH NARE DAILY Tylenol Extra Strength (Acetaminophen) 500 Mg Tablet 1 Tab PO DIRECTED Symbicort Inh (Budesonide/Formoterol Fumarate) 160-4.5 Mcg/Act Aero 2 Puff INH Q12HR Aller-Chlor (Chlorpheniramine Maleate) 4 Mg Tab 4 Mg PO HS PRN Multi-Vitamin Daily (Multiple Vitamin) 1 Tab Tab 1 Tab PO DAILY Vitamin D3 (Cholecalciferol) 1,000 Unit Tab 1,000 Units PO DAILY Atorvastatin (Atorvastatin Calcium) 40 Mg Tab 40 Mg PO DAILY Finasteride 5 Mg Tab 5 Mg PO HS Do not crush. Donepezil 10 Mg Tab 10 Mg PO HS Pantoprazole (Pantoprazole Sodium) 40 Mg Tab 40 Mg PO HS Jantoven (Warfarin) 2.5 Mg Tab 2.5 Mg PO WEIR,TU,WE,FR,SA Jantoven (Warfarin) 5 Mg Tab 5 Mg PO , Potassium Chloride ER (Potassium Chloride) 10 Meq Tab 10 Meq PO HS Doxazosin (Doxazosin Mesylate) 4 Mg Tab 4 Mg PO HS Furosemide 20 Mg Tab 20 Mg PO DAILY Metformin (Metformin HCl) 500 Mg Tab 500 Mg PO DAILYAC With a meal Gabapentin 300 Mg Cap 1,200 Mg PO HS Gabapentin 300 Mg Cap 900 Mg PO DAILY@0600 Montelukast (Montelukast Sodium) 10 Mg Tab 10 Mg PO DAILY Soliqua 100/33 100-33 Unt-Mcg/ml (Insulin Glargine-Lixisenatide) 100 Unit-33 Mcg /Ml (3 Ml) Inj 35 SQ DAILYAC Family History 1 Mother: Stroke Father: Stroke Social History Tobacco: Former smoker Alcohol use or illicit drug use: Denies Physical Exam Vital Signs Vital Signs Date Time Temp Pulse Resp B/P (MAP) Pulse Ox O2 Delivery O2 Flow Rate FiO2 03/17/18 04:47 98.2 84 18 131/62 (85) 93 03/17/18 04:00 Nasal Cannula 3.00 03/17/18 03:47 69 03/17/18 00:00 Nasal Cannula 3.00 03/16/18 23:55 98.2 84 18 136/60 (85) 99 03/16/18 23:47 76 03/16/18 20:27 97.6 82 18 130/59 (82) 97 03/16/18 20:01 92 Nasal Cannula 3.00 03/16/18 20:00 Nasal Cannula 3.00 03/16/18 16:01 98.9 80 24 119/57 (77) 94 03/16/18 16:00 85 03/16/18 14:00 61 03/16/18 12:26 97 Nasal Cannula 2.00 03/16/18 12:00 98.9 70 17 133/61 (85) 98 03/16/18 12:00 72 03/16/18 10:31 16 03/16/18 10:00 72 03/16/18 08:32 100 Nasal Cannula 3.00 03/16/18 08:00 65 03/16/18 08:00 98.5 73 16 151/67 (95) 97 Physical Exam The patient is currently sitting on the side of his bed with his legs dangling. His is visiting at the time. The knee wound appears to be clean and dry and healing well. The Dermabond Prineo remains in place. He is moving the knee fairly well. There is no erythema. There is no induration. There is no sign of infection. There is no drainage. There is currently no edema in his legs. The neurovascular status of the lower extremities is intact. Laboratory Laboratory Tests Test 03/17/18 06:25 Prothrombin Time 30.0 Prothromb Time International Ratio 3.0 Result Diagram: 03/16/18 0433 03/16/18 0433 Assessment & Plan Ortho Post Op Day #: 7 Problem List: (1) Status post total left knee replacement ICD Codes: Z96.652 - Presence of left artificial knee joint Status: Acute Plan: Continue postoperative care and PT. Assessment and Plan Condition: Satisfactory Orthopedically stable. DVT prophylaxis: TEDs, aspirin, sequentials. Discharge plans: Home with home health care. My office has details of the plans made prior to his admission. An appointment was scheduled through the office. Physical therapy orders will be placed. My office should be called prior to discharge. Forest Darby MD (Charles) March 17, 2018 07:49
[2018-03-17] MEDS: INSULIN ASPART SUPPLEMENTAL SCALE SQ SCH ×4 (07:57→20:31)
[2018-03-17] MEDS: DOCUSATE SODIUM 50 MG/SENNA 8.6 MG TAB PO SCH ×2 (07:58→20:32)
[2018-03-17] MEDS: guaiFENesin E.R. 600 MG TAB PO SCH ×2 (07:58→20:32)
[2018-03-17] MEDS: LACTOBACILLUS ACIDOPHILUS TAB PO SCH ×2 (07:58→20:31)
[2018-03-17] MEDS: MULTIVITAMIN TAB PO SCH (07:58)
[2018-03-17] MEDS: ATORVASTATIN 40 MG TAB PO SCH (07:58)
[2018-03-17] MEDS: CHOLECALCIFEROL (VIT D3) 1000 UNIT TAB PO SCH (07:58)
[2018-03-17] MEDS: SODIUM CHLORIDE 0.9% FLUSH 10 ML FLUSH IV FLUSH SCH ×2 (08:00→20:33)
[2018-03-17] MEDS: AZITHROMYCIN INJ 500 MG in SODIUM CHLOR 0.9% 250 ML INJ 250 ML IV SCH (08:04)
[2018-03-17] MEDS: BUDESONIDE-FORMOTEROL 160/4.5 MCG INHALER INH SCH ×2 (08:04→20:35)
--- NOTE | 2018-03-17 08:21 | HHI.FF ---
Face to Face Verification Diagnosis: (1) Status post total left knee replacement Physical Therapy Gait training Knee: Total knee, Protocol: Left, Gait training, Full weight bearing Left LE Weight Bearing: WB as tolerated Left LE Range of Motion: Active ROM (Active, active assisted and passive range of motion. Range of motion goal is 0 extension to 140 of flexion. Range of motion in the operating room was 0 extension to 150 of flexion.) Nursing Nursing: Dressing changes Dressing Changes: Daily dressing change, Coverderm/Primapore Additional Instructions Do not remove Dermabond Prineo. I have seen patient Cheikh Wills on 03/17/18. My clinical findings support the need for the requested home health care services because: Ltd mobility - disease progression Patient has SOB Deconditioned w/ increased weakness Limited ability to care for self High risk of falls I certify that my clinical findings support that this patient is homebound because: Post-op weakness Hx COPD- exertion dyspnea/weakness Unsteady gait/balance Unsafe to leave home unassisted Poor cardiac reserve Forest Darby MD (Charles) March 17, 2018 08:21
[2018-03-17] MEDS: VANCOMYCIN INJ 2,000 MG in SODIUM CHLORID 0.9% 500 ML INJ 500 ML IV SCH (11:28)
--- NOTE | 2018-03-17 15:20 | HHI.PR ---
Subjective Remarks Follow-up healthcare associated pneumonia. The patient states that he feels terrible today. He is increasingly short of breath. Denies chest pain, nausea , vomiting. Reports chills. Objective Vitals Vital Signs Date Time Temp Pulse Resp B/P (MAP) Pulse Ox O2 Delivery O2 Flow Rate FiO2 03/17/18 12:08 98.0 94 17 137/63 (87) 94 03/17/18 09:54 Nasal Cannula 3.00 03/17/18 08:08 98.0 84 16 123/60 (81) 93 03/17/18 07:49 93 Nasal Cannula 3.00 03/17/18 04:47 98.2 84 18 131/62 (85) 93 03/17/18 04:00 Nasal Cannula 3.00 03/17/18 03:47 69 03/17/18 00:00 Nasal Cannula 3.00 03/16/18 23:55 98.2 84 18 136/60 (85) 99 03/16/18 23:47 76 03/16/18 20:27 97.6 82 18 130/59 (82) 97 03/16/18 20:01 92 Nasal Cannula 3.00 03/16/18 20:00 Nasal Cannula 3.00 03/16/18 16:01 98.9 80 24 119/57 (77) 94 03/16/18 16:00 85 I/O 03/16/18 03/16/18 03/16/18 03/17/18 03/17/18 03/17/18 06:59 14:59 22:59 06:59 14:59 22:59 Intake Total 1482 ml 870 ml 100 ml 580 ml Output Total 1000 ml 900 ml Balance 482 ml 870 ml 100 ml -320 ml Intake Oral 680 ml 480 ml IV Total 802 ml 870 ml 100 ml 100 ml Output Urine Total 1000 ml 900 ml Stool Total 0 ml # Bowel Movements 0 Result Diagram: 03/16/18 04303/16/18432 Objective Remarks General: No acute distress. Heart: Regular rate and rhythm. No murmur. Lungs: Scattered rhonchi. Breathing is nonlabored. Abdomen: Soft, nontender, nondistended. Extremities: No lower extremity edema. Psych: Alert and oriented. Neuro: Normal speech. No focal deficits noted. Procedures None Urinary Catheter: No Vascular Central Line Catheter: No A/P Problem List: (1) HCAP (healthcare-associated pneumonia) ICD Code: J18.9 - Pneumonia, unspecified organism (2) Status post total left knee replacement ICD Code: Z96.652 - Presence of left artificial knee joint Status: Acute Assessment and Plan 1. HCAP with acute on chronic hypoxic respiratory failure: Continue vancomycin , aztreonam. Cultures are pending. Urinary Legionella and pneumococcal antigens pending. DuoNeb as needed. Continue supplemental oxygen, Symbicort. Consult patient's trademark attorney. 2. Status post left knee replacement: Appreciate orthopedic surgery recommendations. Continue physical therapy. Continue pain control. 3. Chronic diastolic congestive heart failure: Not in exacerbation. Last echocardiogram available was in 2009 and showed preserved ejection fraction. Repeat echocardiogram ordered. Patient sees Dr. Mariee for cardiology. 4. Diabetes mellitus: Continue Levemir. Monitor Accu-Cheks and cover with sliding scale insulin. Metformin on hold. 5. Diabetic neuropathy: Continue gabapentin. 6. Hypertension: Continue current medications. 7. Atrial fibrillation: Currently in sinus rhythm. Continue Coumadin. 8. BPH: Continue Proscar, Cardura. 9. Early dementia: Continue Aricept. 10. DVT prophylaxis: Coumadin. The patient's is at bedside and is adamant that he needs to be transferred to [facility] in [place]. She states that his physicians are there and she does not want him to be at [facility] anymore. I discussed this with the patient and his at length. At this time there is no definite reason for transfer. We will consult the patient's trademark attorney. Manuel Pagan MD March 17, 2018 15:20
[2018-03-17] MEDS: DONEPEZIL HCL 5 MG TAB PO SCH (20:32)
[2018-03-17] MEDS: PANTOPRAZOLE SOD 40 MG DELAYED RELEASE TAB PO SCH (20:32)
[2018-03-17] MEDS: DOXAZOSIN MESYLATE 4 MG TAB PO SCH (20:32)
[2018-03-17] MEDS: FINASTERIDE 5 MG TAB PO SCH (20:33)
[2018-03-18] VITALS (7 sets, daily range): BP systolic 120–151; BP diastolic 60–67; PULSE 74–99; RESP 18–19; TEMP 98–98.6; O2SAT 92–96
[2018-03-18] MEDS: ACETAMINOPHEN 325 MG TAB PO PRN ×5 (02:13→21:27)
[2018-03-18] MEDS: AZTREONAM INJ 1,000 MG in SODIUM CHLORIDE 0.9% INJ 100 ML IV SCH ×3 (03:07→18:31)
[2018-03-18 07:07] LABS: PROTHROMBIN TIME - PATIENT 30.4 SEC (9.8-11.6)
[2018-03-18] MEDS: GABAPENTIN 300 MG CAP PO SCH ×2 (07:07→21:28)
[2018-03-18 07:22] LABS: CREATININE 1.04 MG/DL (0.60-1.30)
[2018-03-18] MEDS: INSULIN ASPART SUPPLEMENTAL SCALE SQ SCH ×4 (08:00→21:00)
--- NOTE | 2018-03-18 08:08 | PD.ORT.PN ---
Subjective Post Op Day #: 8 Subjective Remarks He is doing somewhat better. He has less discomfort in the knee. He is anxious to get some therapy and walking. Range of Motion 0 extension to 55 of flexion. Distance Walked 12 feet with PT. Objective Vitals Vital Signs Date Time Temp Pulse Resp B/P (MAP) Pulse Ox O2 Delivery O2 Flow Rate FiO2 03/18/18 03:59 98.1 74 19 132/62 (85) 92 03/18/18 00:06 98.0 80 18 136/62 (86) 92 03/17/18 20:48 98.3 81 18 150/67 (94) 95 03/17/18 20:23 3 Nasal Cannula 03/17/18 20:15 Nasal Cannula 3.00 03/17/18 16:08 96.8 83 17 144/65 (91) 94 03/17/18 16:00 84 03/17/18 12:08 98.0 94 17 137/63 (87) 94 03/17/18 09:54 Nasal Cannula 3.00 03/17/18 08:08 98.0 84 16 123/60 (81) 93 I/O 03/17/18 03/17/18 03/17/18 03/18/18 03/18/18 03/18/18 07:00 15:00 23:00 07:00 15:00 23:00 Intake Total 580 ml 480 ml 360 ml Output Total 900 ml 900 ml 360 ml Balance -320 ml -420 ml 0 ml Intake Oral 480 ml 480 ml 360 ml IV Total 100 ml Output Urine Total 900 ml 900 ml 360 ml # Bowel Movements 0 1 0 Result Diagram: 03/16/18 0433 03/18/18 0456 Other Results Laboratory Tests Test 03/18/18 04:56 Prothromb Time International Ratio 3.0 RATIO Prothrombin Time 30.4 SEC (9.8-11.6) Objective Remarks He is resting comfortably, supine in bed, in the CPM. The neurovascular status is intact. The dressing is dry and intact. There is no erythema. There is no induration. There is no tenderness of significance. Assessment & Plan Ortho Post Op Day #: 8 Problem List: (1) Status post total left knee replacement ICD Codes: Z96.652 - Presence of left artificial knee joint Status: Acute Plan: Continue postoperative care and PT. Assessment and Plan Condition: Good Orthopedically stable. DVT prophylaxis: TEDs, warfarin, sequentials. Discharge plans: Home with home health care. My office has details of the plans made prior to his admission. An appointment was scheduled through the office. Physical therapy orders have been placed. My office should be called prior to discharge. Forest Darby MD (Charles) March 18, 2018 08:08
[2018-03-18] MEDS: RESP: ALBUTEROL 2.5 MG/IPRATROPIUM 0.5 MG NEB (SCH) NEB ×3 (09:28→20:32)
[2018-03-18] MEDS: AZITHROMYCIN INJ 500 MG in SODIUM CHLOR 0.9% 250 ML INJ 250 ML IV SCH (09:33)
[2018-03-18] MEDS: MULTIVITAMIN TAB PO SCH (09:39)
[2018-03-18] MEDS: CHOLECALCIFEROL (VIT D3) 1000 UNIT TAB PO SCH (09:39)
[2018-03-18] MEDS: DOCUSATE SODIUM 50 MG/SENNA 8.6 MG TAB PO SCH ×2 (09:40→21:28)
[2018-03-18] MEDS: guaiFENesin E.R. 600 MG TAB PO SCH ×2 (09:40→21:28)
[2018-03-18] MEDS: LACTOBACILLUS ACIDOPHILUS TAB PO SCH ×2 (09:40→21:28)
[2018-03-18] MEDS: ATORVASTATIN 40 MG TAB PO SCH (09:40)
[2018-03-18] MEDS: BUDESONIDE-FORMOTEROL 160/4.5 MCG INHALER INH SCH ×2 (09:43→21:29)
[2018-03-18] MEDS: SODIUM CHLORIDE 0.9% FLUSH 10 ML FLUSH IV FLUSH SCH ×2 (09:45→21:00)
--- NOTE | 2018-03-18 11:33 | HHI.PR ---
Subjective Remarks Patient laying in bed. States he is doing much better, able to cough up sputum and clear his nose. Breathing improved. Denies chest pain. Objective Vitals Vital Signs Date Time Temp Pulse Resp B/P (MAP) Pulse Ox O2 Delivery O2 Flow Rate FiO2 03/18/18 09:35 95 Nasal Cannula 2.00 03/18/18 08:00 98.3 76 18 151/67 (95) 92 03/18/18 07:00 Nasal Cannula 2.00 03/18/18 03:59 98.1 74 19 132/62 (85) 92 03/18/18 00:06 98.0 80 18 136/62 (86) 92 03/17/18 20:48 98.3 81 18 150/67 (94) 95 03/17/18 20:23 3 Nasal Cannula 03/17/18 20:15 Nasal Cannula 3.00 03/17/18 16:08 96.8 83 17 144/65 (91) 94 03/17/18 16:00 84 03/17/18 12:08 98.0 94 17 137/63 (87) 94 I/O 03/17/18 03/17/18 03/17/18 03/18/18 03/18/18 03/18/18 07:00 15:00 23:00 07:00 15:00 23:00 Intake Total 580 ml 480 ml 360 ml Output Total 900 ml 900 ml 360 ml Balance -320 ml -420 ml 0 ml Intake Oral 480 ml 480 ml 360 ml IV Total 100 ml Output Urine Total 900 ml 900 ml 360 ml # Bowel Movements 0 1 0 Result Diagram: 03/16/18 0433 03/18/18 0456 Objective Remarks General: No acute distress. Heart: Regular rate and rhythm. No murmur. Lungs: Scattered rhonchi. Breathing is nonlabored. Abdomen: Soft, nontender, nondistended. Extremities: No lower extremity edema. Psych: Alert and oriented. Procedures None A/P Problem List: (1) HCAP (healthcare-associated pneumonia) ICD Code: J18.9 - Pneumonia, unspecified organism (2) Status post total left knee replacement ICD Code: Z96.652 - Presence of left artificial knee joint Status: Acute Assessment and Plan HCAP with acute on chronic hypoxic respiratory failure -Continue vancomycin, aztreonam. -Cultures are pending. Urinary Legionella and pneumococcal antigens pending. -DuoNeb as needed. -Continue supplemental oxygen, Symbicort. -Consult patient's forklift wheel loader. Status post left knee replacement -Ortho following -Continue physical therapy -Continue pain control. Chronic diastolic congestive heart failure, Not in exacerbation. Last echocardiogram available was in 2009 and showed preserved ejection fraction. - Repeat echocardiogram reviewed and showed EF 50-55% with LVH. Patient sees Dr. Mariee for cardiology. Diabetes mellitus, chronic, with vermin exterminator use -Continue Levemir -Monitor Accu-Cheks with sliding scale insulin. -Metformin on hold. Diabetic neuropathy: Continue gabapentin. Hypertension, chronic, controlled -Continue current medications. Atrial fibrillation, chronic -Currently in sinus rhythm. Continue Coumadin. BPH, chronic -Continue Proscar, Cardura. Early dementia -Continue Aricept. DVT prophylaxis: Coumadin. Discharge Planning once stable and [place] set up Sofia Brannon March 18, 2018 11:33
[2018-03-18] MEDS ORDERED: PHARMACY ORDERED LAB ONE (11:45)
[2018-03-18] MEDS: VANCOMYCIN INJ 2,000 MG in SODIUM CHLORID 0.9% 500 ML INJ 500 ML IV SCH (12:57)
--- NOTE | 2018-03-18 16:47 | PD.WCN.NOT ---
Wound Consult Additional Information: Patient not seen. Spoke with SOO Sylvester [address] north regarding possible wound on sacral area.SOO Madden reports skin is intact, blanchable and pink to sacral area. RN will keep repositioning patient every 2 hours and PRN for comfort and offloading of pressure of [place] prominences. Please consult wound care nurse for open wounds over [place] prominences. Suzette Porter [facility] March 18, 2018 16:47
[2018-03-18] MEDS: DONEPEZIL HCL 5 MG TAB PO SCH (21:28)
[2018-03-18] MEDS: DOXAZOSIN MESYLATE 4 MG TAB PO SCH (21:28)
[2018-03-18] MEDS: PANTOPRAZOLE SOD 40 MG DELAYED RELEASE TAB PO SCH (21:29)
[2018-03-18] MEDS: FINASTERIDE 5 MG TAB PO SCH (21:29)
[2018-03-19 00:01] VITALS: BP 135/62; PULSE 84; RESP 18; TEMP 99.5; O2SAT 94
[2018-03-19] MEDS: AZTREONAM INJ 1,000 MG in SODIUM CHLORIDE 0.9% INJ 100 ML IV SCH ×2 (02:07→10:24)
[2018-03-19] MEDS: ACETAMINOPHEN 325 MG TAB PO PRN ×4 (02:08→14:03)
[2018-03-19 06:05] VITALS: O2SAT 97
[2018-03-19] MEDS: RESP: ALBUTEROL 2.5 MG/IPRATROPIUM 0.5 MG NEB (PRN) NEB (06:05)
--- NOTE | 2018-03-19 06:08 | PD.ORT.PN ---
Subjective Post Op Day #: 9 Subjective Remarks He is doing somewhat better. He has less discomfort in the knee. He is anxious to go home. Range of Motion 0 extension to 90 of flexion. Distance Walked 12 feet; then 12 twice with PT. Objective Vitals Vital Signs Date Time Temp Pulse Resp B/P (MAP) Pulse Ox O2 Delivery O2 Flow Rate FiO2 03/19/18 00:01 99.5 84 18 135/62 (86) 94 03/18/18 21:20 94 Nasal Cannula 3.00 03/18/18 19:47 98.4 92 18 132/60 (84) 95 03/18/18 16:00 98.4 91 18 120/62 (81) 96 03/18/18 12:00 98.6 99 18 140/66 (90) 93 03/18/18 09:35 95 Nasal Cannula 2.00 03/18/18 08:00 98.3 76 18 151/67 (95) 92 03/18/18 07:00 Nasal Cannula 2.00 I/O 03/18/18 03/18/18 03/18/18 03/19/18 03/19/18 03/19/18 07:00 15:00 23:00 07:00 15:00 23:00 Intake Total 360 ml 350 ml 960 ml Output Total 360 ml 725 ml Balance 0 ml 350 ml 235 ml Intake Oral 360 ml 960 ml IV Total 350 ml Output Urine Total 360 ml 725 ml # Bowel Movements 0 0 Result Diagram: 03/16/18 0433 03/18/18 0456 Objective Remarks He is sitting out of bed in the chair. He is getting a respiratory treatment. The neurovascular status is intact. The wound is clean and dry and healing well. There is no erythema. There is no induration. There is no tenderness of significance. Assessment & Plan Ortho Post Op Day #: 9 Problem List: (1) Status post total left knee replacement ICD Codes: Z96.652 - Presence of left artificial knee joint Status: Acute Plan: Continue postoperative care and PT. Assessment and Plan Condition: Good Orthopedically stable. DVT prophylaxis: TEDs, warfarin, sequentials. Discharge plans: Home with home health care. An appointment was scheduled through the office. My office has details of the discharge plans made prior to his admission. My office should be called prior to discharge. Forest Darby MD (Charles) March 19, 2018 06:08
[2018-03-19] MEDS: GABAPENTIN 300 MG CAP PO SCH (06:17)
[2018-03-19] MEDS: INSULIN ASPART SUPPLEMENTAL SCALE SQ SCH ×3 (07:24→17:00)
[2018-03-19 08:00] VITALS: BP 123/64; PULSE 73; RESP 20; TEMP 98.2; O2SAT 95
[2018-03-19] MEDS: guaiFENesin E.R. 600 MG TAB PO SCH (08:19)
[2018-03-19] MEDS: AZITHROMYCIN INJ 500 MG in SODIUM CHLOR 0.9% 250 ML INJ 250 ML IV SCH (08:19)
[2018-03-19] MEDS: ATORVASTATIN 40 MG TAB PO SCH (08:19)
[2018-03-19] MEDS: CHOLECALCIFEROL (VIT D3) 1000 UNIT TAB PO SCH (08:19)
[2018-03-19] MEDS: MULTIVITAMIN TAB PO SCH (08:19)
[2018-03-19] MEDS: LACTOBACILLUS ACIDOPHILUS TAB PO SCH (08:19)
[2018-03-19] MEDS: DOCUSATE SODIUM 50 MG/SENNA 8.6 MG TAB PO SCH (08:19)
[2018-03-19] MEDS: SODIUM CHLORIDE 0.9% FLUSH 10 ML FLUSH IV FLUSH SCH (08:19)
[2018-03-19] MEDS: BUDESONIDE-FORMOTEROL 160/4.5 MCG INHALER INH SCH (08:20)
[2018-03-19 08:43] LABS: INTERNATIONAL NORMALIZED RATIO 2.4 RATIO; PROTHROMBIN TIME - PATIENT 24.1 SEC (9.8-11.6)
[2018-03-19 09:00] LABS: CREATININE 1.03 MG/DL (0.60-1.30)
[2018-03-19] MEDS: RESP: ALBUTEROL 2.5 MG/IPRATROPIUM 0.5 MG NEB (SCH) NEB ×2 (09:40→13:35)
[2018-03-19 09:41] VITALS: O2SAT 93
[2018-03-19 12:00] VITALS: BP 115/59; PULSE 74; RESP 20; TEMP 97.5; O2SAT 95
[2018-03-19] MEDS ORDERED: LEVOFLOXACIN 750 MG TAB PO SCH (12:00)
--- NOTE | 2018-03-19 12:25 | HHI.PR ---
Subjective Remarks Follow up PNA. Patient is sitting up in the chair. Very anxious to go home. Denies any chest pain or sob. Explained in detail with patient and about discharge and patient needing to work with physical therapy and make sure he is walking ok to go home with [facility]. 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 Objective Vitals Vital Signs Date Time Temp Pulse Resp B/P (MAP) Pulse Ox O2 Delivery O2 Flow Rate FiO2 03/19/18 09:41 93 Nasal Cannula 2.00 03/19/18 08:00 98.2 73 20 123/64 (83) 95 03/19/18 07:41 Nasal Cannula 3.00 03/19/18 06:05 97 Nasal Cannula 3.00 03/19/18 00:01 99.5 84 18 135/62 (86) 94 03/18/18 21:20 94 Nasal Cannula 3.00 03/18/18 19:47 98.4 92 18 132/60 (84) 95 03/18/18 16:00 98.4 91 18 120/62 (81) 96 I/O 03/18/18 03/18/18 03/18/18 03/19/18 03/19/18 03/19/18 07:00 15:00 23:00 07:00 15:00 23:00 Intake Total 360 ml 350 ml 960 ml 100 ml Output Total 360 ml 725 ml Balance 0 ml 350 ml 235 ml 100 ml Intake Oral 360 ml 960 ml IV Total 350 ml 100 ml Output Urine Total 360 ml 725 ml # Bowel Movements 0 0 Result Diagram: 03/16/18 0433 03/19/18 0728 Objective Remarks General: No acute distress. Heart: Regular rate and rhythm. No murmur. Lungs: Scattered rhonchi. Breathing is nonlabored. Abdomen: Soft, nontender, nondistended. Extremities: No lower extremity edema. Psych: Alert and oriented. Procedures None Urinary Catheter: No Vascular Central Line Catheter: No A/P Problem List: (1) HCAP (healthcare-associated pneumonia) ICD Code: J18.9 - Pneumonia, unspecified organism (2) Status post total left knee replacement ICD Code: Z96.652 - Presence of left artificial knee joint Status: Acute Assessment and Plan HCAP with acute on chronic hypoxic respiratory failure -03/19 Changed antibiotics to Levaquin PO for 5 days -Urinary Legionella and pneumococcal antigens negative. -DuoNeb as needed. -Continue supplemental oxygen, Symbicort. -Consult patient's building services engineer. Status post left knee replacement -Ortho following, ortho has cleared patient for home with [facility] -Continue physical therapy -Continue pain control. Chronic diastolic congestive heart failure, Not in exacerbation. Last echocardiogram available was in 2009 and showed preserved ejection fraction. - Repeat echocardiogram reviewed and showed EF 50-55% with LVH. Patient sees Dr. Mariee for cardiology. Diabetes mellitus, chronic, with emt intermediate use -Continue Levemir -Monitor Accu-Cheks with sliding scale insulin. -Metformin on hold. Diabetic neuropathy: Continue gabapentin. Hypertension, chronic, controlled -Continue current medications. Atrial fibrillation, chronic, controlled -Currently in sinus rhythm. Continue Coumadin. BPH, chronic -Continue Proscar, Cardura. Early dementia -Continue Aricept. DVT prophylaxis: Coumadin Discharge Planning once C set up is set up and patient is walking well with physical therapy Sofia Brannon March 19, 2018 12:25
[2018-03-19 13:07] LABS: AUTOMATED NEUTROPHIL # 5.3 TH/MM3 (1.8-7.7); BASOPHIL % 0.6 % (0.0-2.0); EOSINOPHIL # 0.4 TH/MM3 (0-0.4); EOSINOPHIL % 4.8 % (0.0-4.0); HEMATOCRIT 27.3 % (39.0-51.0); HEMOGLOBIN 9.3 GM/DL (13.0-17.0); LYMPH % 15.3 % (9.0-44.0); LYMPHOCYTE # 1.1 TH/MM3 (1.0-4.8); MEAN CELL VOLUME 89.4 FL (80.0-100.0); MEAN CORPUSCULAR HEMOGLOBIN 30.4 PG (27.0-34.0); MEAN PLATELET VOLUME 7.1 FL (7.0-11.0); MONO % 8.2 % (0.0-8.0); MONOCYTE # 0.6 TH/MM3 (0-0.9); NEUT % 71.1 % (16.0-70.0); PLATELET COUNT 319 TH/MM3 (150-450); RED BLOOD COUNT 3.06 MIL/MM3 (4.50-5.90); RED CELL DISTRIBUTION WIDTH 15.1 % (11.6-17.2); WHITE BLOOD COUNT 7.4 TH/MM3 (4.0-11.0)
[2018-03-19 13:33] LABS: BICARBONATE 22.1 MEQ/L (21.0-32.0); CALCIUM 8.1 MG/DL (8.5-10.1); CREATININE 1.06 MG/DL (0.60-1.30)
[2018-03-19] MEDS ORDERED: COUM4TAB PO (15:47)
[2018-03-19] MEDS ORDERED: LEVA750T9 PO (15:47)
[2018-03-19] MEDS ORDERED: LACTTAB8 PO (15:47)
--- NOTE | 2018-03-19 15:51 | HHI.DCPOC ---
Discharge Care Plan Diagnosis: (1) HTN (hypertension) (2) Dementia (3) Diabetes (4) HCAP (healthcare-associated pneumonia) (5) Postoperative anemia due to acute blood loss (6) Impaired mobility and activities of daily living (7) Status post total left knee replacement Goals to Promote Your Health * To prevent worsening of your condition and complications * To maintain your health at the optimal level Directions to Meet Your Goals Take your medications as prescribed Follow your dietary instruction Follow activity as directed Keep your appointments as scheduled Take your immunizations and boosters as scheduled If your symptoms worsen call your PCP, if no PCP go to Urgent Care Center or Emergency Room Smoking is Dangerous to Your Health. Avoid second hand smoke Call the 24-hour hour crisis hotline for domestic abuse at Sofia Brannon March 19, 2018 15:51
[2018-03-19] MEDS ORDERED: WARFARIN SOD 4 MG TAB PO SCH (16:00)
--- NOTE | 2018-03-19 16:06 | HHI.DS ---
Discharge Summary Admission Date Mar 15, 2018 at 08:12 Discharge Date: March 19, 2018 Admitting Diagnosis Respiratory failure (1) HCAP (healthcare-associated pneumonia) ICD Code: J18.9 - Pneumonia, unspecified organism Diagnosis: Principal (2) Status post total left knee replacement ICD Code: Z96.652 - Presence of left artificial knee joint Diagnosis: Secondary Status: Acute Procedures None Brief History - From Admission This is a 77-year-old male with history of hypertension, diabetes mellitus, CHF , atrial fibrillation this, COPD and BPH, previously admitted on March 10, 2018 for total left knee replacement. His hospital course was complicated with dyspnea, dizziness and tachycardia. Patient was ruled out for PE. It was thought that this may be secondary to anemia for which she received 1 unit of packed red blood cells. He was then transferred to [facility] 03/13/2018. Patient was found to have pneumonia and was started on ceftriaxone and azithromycin and bronchodilators. However, this morning around 5 AM, patient started having shivering, and increasing shortness of breath, rapid response team was called. Patient was hypoxic in the low 80s and patient was placed on a nonrebreather. Patient was then transferred to the intensive care unit. Presently, patient feels better than this morning, still short of breath, complaining of dry cough but not more than usual. No note of fever but patient had episodes of chills and shivers. Patient denies any chest pain, palpitations , dizziness or lightheadedness. In fact, after receiving blood, he felt better. Per patient, he was not short of breath during or after the blood transfusion, there is also no note of itching, rash, lip and tongue thickening, CBC/BMP: 03/19/18 1240 03/19/18 1240 Significant Findings Laboratory Tests Test 03/17/18 06:25 03/18/18 04:56 03/18/18 12:45 03/19/18 07:28 Prothrombin Time 30.0 SEC (9.8-11.6) 30.4 SEC (9.8-11.6) 24.1 SEC (9.8-11.6) Estimat Glomerular Filtration Rate 69 ML/MIN (>89) 70 ML/MIN (>89) Vancomycin Level Trough 13.6 MCG/ML (5.0-10.0) Test 03/19/18 12:40 Red Blood Count 3.06 MIL/MM3 (4.50-5.90) Hemoglobin 9.3 GM/DL (13.0-17.0) Hematocrit 27.3 % (39.0-51.0) Neutrophils (%) (Auto) 71.1 % (16.0-70.0) Monocytes (%) (Auto) 8.2 % (0.0-8.0) Eosinophils (%) (Auto) 4.8 % (0.0-4.0) Random Glucose 121 MG/DL (74-106) Calcium Level 8.1 MG/DL (8.5-10.1) Chloride Level 108 MEQ/L (98-107) Estimat Glomerular Filtration Rate 68 ML/MIN (>89) PE at Discharge General: No acute distress. Heart: Regular rate and rhythm. No murmur. Lungs: Scattered rhonchi. Breathing is nonlabored. Abdomen: Soft, nontender, nondistended. Extremities: No lower extremity edema. Psych: Alert and oriented. Hospital Course This is a 77-year-old male with history of hypertension, diabetes mellitus, CHF , atrial fibrillation this, COPD and BPH, previously admitted on March 10, 2018 for total left knee replacement. His hospital course was complicated with dyspnea, dizziness and tachycardia. Patient was ruled out for PE. It was thought that this may be secondary to anemia for which she received 1 unit of packed red blood cells. He was then transferred to [facility] 03/13/2018. Patient was found to have pneumonia and was started on ceftriaxone and azithromycin and bronchodilators. Patient had respiratory distress due to increased shivering and patient was transferred [facility]. Patient was treated for HCAP and after cultures were negative antibiotics were changed to Levaquin PO and will continue for 4 days post discharge. Patient has been working well with PT and is insisting he can do better at home. 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 Plan for discharge is as follows: HCAP with acute on chronic hypoxic respiratory failure -03/19 Changed antibiotics to Levaquin PO for 5 days, 1st dose given in hospital -Urinary Legionella and pneumococcal antigens negative. -Continue DuoNeb as needed. -Continue supplemental oxygen, Symbicort. -Follow up with your Upper Inspector outpatient. -Probiotics TIDAC Status post left knee replacement -ortho has cleared patient for home with [facility], follow up in 2 weeks -Continue physical therapy with [facility] -Continue pain control with tylenol or [place] Chronic diastolic congestive heart failure, Not in exacerbation. Last echocardiogram available was in 2009 and showed preserved ejection fraction. - Repeat echocardiogram reviewed and showed EF 50-55% with LVH. -Patient sees Dr. Mariee for cardiology, follow up as needed Diabetes mellitus, chronic, with telecommunication equipment repairer use -Continue long acting and metformin upon discharge -Monitor Accu-Cheks at home Diabetic neuropathy: Continue gabapentin. Hypertension, chronic, controlled -Continue current home medications. Atrial fibrillation, chronic, controlled -Currently in sinus rhythm. Continue Coumadin -PT INR in 2-3 days, follow with PCP BPH, chronic : Continue home medications Proscar, Cardura. Early dementia: Continue home medications Aricept. Pt Condition on Discharge: Stable Discharge Disposition: Disch w/ Home Health Serv Discharge Time: > 30 minutes Discharge Instructions DIET: Follow Instructions for: Diabetic Diet, Coumadin (Warfarin) Diet Activities you can perform: Weight Bearing as [place] Other Activity Instructions: Avoid strenuous activity, driving, lifting and bending until cleared by ortho outpatient Follow up Referrals: Orthopedics - 1 Week with Forest Darby MD (Charles) PCP Follow-up - 2-3 Days Pulmonology - 1 Week with Kp Carty MD New Orders: PT/INR - 2-3 Days New Medications: Lactobacillus Acidophilus (Lactobacillus Acidophilus) 1 Billion Cell Tab 1 TAB PO TIDAC for Nutritional Supplement for 30 Days, #90 TAB 0 Refills Levofloxacin (Levaquin) 750 Mg Tablet 750 MG PO DAILY for Infection for 4 Days, #4 TAB 0 Refills Warfarin (Coumadin) 4 Mg Tab 4 MG PO MoTh for Blood Clot Prevention for 30 Days, #30 TAB 0 Refills Continued Medications: Acetaminophen (Tylenol Extra Strength) 500 Mg Tablet 1 TAB PO DIRECTED for Pain Management Atorvastatin (Atorvastatin) 40 Mg Tab 40 MG PO DAILY for Cholesterol Management, #30 TAB 0 Refills Azithromycin (Azithromycin) 250 Mg Tab 500 MG PO DAILY for 7 Days, #7 TAB Budesonide-Formoterol Inh (Symbicort Inh) 160-4.5 Mcg/Act Aero 2 PUFF INH Q12HR, #1 INHALER 0 Refills Chlorpheniramine (Aller-Chlor) 4 Mg Tab 4 MG PO HS PRN for Allergies, TAB 0 Refills Cholecalciferol (Vitamin D3) 1,000 Unit Tab 1000 UNITS PO DAILY for Nutritional Supplement, #1 BOTTLE 0 Refills Donepezil (Donepezil) 10 Mg Tab 10 MG PO HS for Dementia, #30 TAB 0 Refills Doxazosin (Doxazosin) 4 Mg Tab 4 MG PO HS, #30 TAB 0 Refills Finasteride (Finasteride) 5 Mg Tab 5 MG PO HS for Manage Prostate Problems, #30 TAB 0 Refills Do not crush. Furosemide (Furosemide) 20 Mg Tab 20 MG PO DAILY, #30 TAB 0 Refills Gabapentin (Gabapentin) 300 Mg Cap 900 MG PO DAILY@0600, #90 CAP 0 Refills Gabapentin (Gabapentin) 300 Mg Cap 1200 MG PO HS, #90 CAP 0 Refills Hydrocodone/Acetaminophen (Hydrocodone-Acetamin 7.5-325) 7.5 Mg-325 Mg Tablet 1 TAB PO Q4H PRN for PAIN SCALE 1 TO 10, #30 TAB Insulin Glargine-Lixisenatide (Soliqua 100/33 100-33 Unt-Mcg/ml) 100 Unit-33 Mcg /Ml (3 Ml) Inj 35 SQ DAILYAC for Blood Sugar Management Metformin (Metformin) 500 Mg Tab 500 MG PO DAILYAC for Blood Sugar Management, #30 TAB 0 Refills With a meal Mometasone Nasal [place] (Nasonex Nasal [place]) 50 Mcg/Act Naspr 1 SPRAY EACH NARE DAILY for Allergy Management, #1 BOTTLE 0 Refills Montelukast (Montelukast) 10 Mg Tab 10 MG PO DAILY, #30 TAB 0 Refills Multiple Vitamin (Multi-Vitamin Daily) 1 Tab Tab 1 TAB PO DAILY for Nutritional Supplement, TAB 0 Refills Pantoprazole (Pantoprazole) 40 Mg Tab 40 MG PO HS for Reflux, #30 TAB 0 Refills Potassium Chloride ER (Potassium Chloride ER) 10 Meq Tab 10 MEQ PO HS for Electrolyte Replacement, #30 TAB 0 Refills Warfarin (Jantoven) 2.5 Mg Tab 2.5 MG PO WEIR,TU,WE,FR,SA for Blood Clot Prevention, #30 TAB 0 Refills Discontinued Medications: Warfarin (Jantoven) 5 Mg Tab 5 MG PO MO,TH for Blood Clot Prevention, #30 TAB 0 Refills Sofia Brannon March 19, 2018 16:06
== END 2018-03-19 17:38 | disposition home health service (06) | DRG 193 ==
LOC: HIMW 08:12 → N04A 03-16 18:22 → N06B 03-17 10:41
PROVIDERS: ADMIT Hospitalist; ATTEND Hospitalist
DX: J18.9 Pneumonia, unspecified organism (principal); J96.21 Acute and chronic respiratory failure with hypoxia; F03.90 Unspecified dementia, unspecified severity, without behavioral disturbance, psychotic disturbance, mood disturbance, and anxiety; I50.32 Chronic diastolic (congestive) heart failure; J44.0 Chronic obstructive pulmonary disease with (acute) lower respiratory infection; I11.0 Hypertensive heart disease with heart failure; E11.40 Type 2 diabetes mellitus with diabetic neuropathy, unspecified; I48.2 Chronic atrial fibrillation; N40.0 Benign prostatic hyperplasia without lower urinary tract symptoms; Y95 Nosocomial condition; Z79.01 Long term (current) use of anticoagulants; Z79.84 Long term (current) use of oral hypoglycemic drugs; Z88.0 Allergy status to penicillin; Z88.1 Allergy status to other antibiotic agents; Z88.5 Allergy status to narcotic agent; Z87.891 Personal history of nicotine dependence; Z95.0 Presence of cardiac pacemaker; Z96.653 Presence of artificial knee joint, bilateral
CPT/HCPCS: 80048; 80053; 80202; 82565; 82948; 85025; 85610; 87449; 87641; 93306; 94640; 94664; J0456; J2930; J3370; J7040; J7050